=== PATIENT | female | born 1950 | race Caucasian/White ===

== ENCOUNTER 2017-06-07 12:41 | Emergency (ER) | payer MEDICARE, OTHER ==
--- NOTE | 2017-06-07 13:52 | ER Document Report ---
ED Medical Screen (RME) - General Chief Complaint: General Weakness Stated Complaint: FALL RIB PAIN Time Seen by Provider: 06/07/17 13:45 Mode of Arrival: Wheelchair Information source: Patient, Relative Notes: Patient is a 67 year old female with a history of COPD and chronic renal disease presents to the emergency department accompanied by daughter complaining of multiple symptoms including right sided rib pain, bilateral leg swelling, shortness of breath, lightheadedness, a recent fall, and altered mental status. Daughter states she [facility] the patient [facility] on [facility] and the patient reported she fell. Daughter states the patient has been feeling light headed and dizzy further stating the patient has not been mentally herself since then she picked her up. Patient has a history of electrolyte abnormalities and low sodium. At bedside patient only complains of a headache and rib pain. Patient denies a history of LA or strokes. GENERAL: Alert, interacts well. No acute distress. HEAD: Normocephalic, Atraumatic. NECK: Full range of motion. Supple. Trachea midline. LUNGS: Clear to auscultation bilaterally, no wheezes, rales, or rhonchi. No respiratory distress. HEART: Regular rate and rhythm. No murmurs, gallops, or rubs. ABDOMEN: Soft, non-tender. Non-distended. Bowel sounds present in all 4 quadrants. EXTREMITIES: 1+ pitting edema in BLE. PSYCH: Normal affect, normal mood. I have greeted and performed a rapid initial assessment of this patient. A comprehensive ED assessment and evaluation of the patient, analysis of test results and completion of the medical decision making process will be conducted by additional ED providers. TRAVEL OUTSIDE OF THE [place] IN LAST 30 DAYS: No - Related Data Allergies/Adverse Reactions: No Known Allergies Allergy (Unverified 06/07/17 12:43) Physical Exam - Vital signs Vitals: Temp Pulse Resp BP Pulse Ox 98.2 F 79 18 145/62 H 97 06/07/17 12:59 06/07/17 12:59 06/07/17 12:59 06/07/17 12:59 06/07/17 12:59 Course - Vital Signs Vital signs: Temp Pulse Resp BP Pulse Ox 98.2 F 79 18 145/62 H 97 06/07/17 12:59 06/07/17 12:59 06/07/17 12:59 06/07/17 12:59 06/07/17 12:59 Scribe Documentation - Scribe Written by Valentín:: Valentín Nelson, 06/07/2017 13:52 acting as scribe for :: Miki
[2017-06-07 14:32] LABS: HEMATOCRIT 27.2 % (36.0-47.0); HEMOGLOBIN 9.5 g/dL (12.0-15.5); MEAN CORPUSCULAR HEMOGLOBIN 28.8 pg (27.0-33.4); MEAN CORPUSCULAR HGB CONC 34.8 g/dL (32.0-36.0); MEAN CORPUSCULAR VOLUME 83 fl (80-97); PLATELET COUNT 214 10^3/uL (150-450); RED BLOOD COUNT 3.29 10^6/uL (3.72-5.28); RED CELL DISTRIBUTION WIDTH 15.1 % (11.5-14.0); WHITE BLOOD COUNT 3.4 10^3/uL (4.0-10.5)
--- NOTE | 2017-06-07 14:42 | RADIOLOGY REPORT (SQ) ---
EXAM DESCRIPTION: CT HEAD WITHOUT COMPLETED DATE/TIME: 06/07/2017 2:30 pm REASON FOR STUDY: AMS COMPARISON: None. TECHNIQUE: Axial images acquired through the brain without intravenous contrast. Images reviewed wi th bone, brain and subdural windows. Images stored on PACS. All CT scanners at this facility use dose modulation, iterative reconstruction, and/or weight based d osing when appropriate to reduce radiation dose to as low as reasonably achievable (ALARA). [facility]: Dose Right [facility]: CareDose [facility]: Dose Right [facility]: Teradose 4D [facility]: Smart [employer] RADIATION DOSE: CT Rad equipment meets quality standard of care and radiation dose reduction techniq ues were employed. CTDIvol: 59.2 mGy. DLP: 1034 mGy-cm. mGy. LIMITATIONS: None. FINDINGS: VENTRICLES: Normal size and contour. CEREBRUM: No masses. No hemorrhage. No midline shift. No evidence for acute infarction. Normal gra y/white matter differentiation. No areas of low density in the white matter. CEREBELLUM: No masses. No hemorrhage. No alteration of density. No evidence for acute infarction. EXTRAAXIAL SPACES: No fluid collections. No masses. ORBITS AND GLOBE: No intra- or extraconal masses. Normal contour of globe without masses. CALVARIUM: No fracture. PARANASAL SINUSES: No fluid or mucosal thickening. SOFT TISSUES: No mass or hematoma. OTHER: No other significant finding. IMPRESSION: NORMAL BRAIN CT WITHOUT CONTRAST. EVIDENCE OF ACUTE STROKE: NO. COMMENT: Quality ID # [id number]: Final reports with documentation of one or more dose reduction techniques (e.g., Automated exposure control, adjustment of the mA and/or kV according to patient size, use of iterative reconstruction technique) TECHNICAL DOCUMENTATION: JOB ID: [id number] [employer]- All Rights Reserved Reading location - IP/workstation name: [email or web address]
[2017-06-07 14:54] LABS: ALANINE AMINOTRANSFERASE 37 U/L (9-52); ALBUMIN 3.6 g/dL (3.5-5.0); ALKALINE PHOSPHATASE 69 U/L (38-126); ANION GAP 10 (5-19); ASPARTATE AMINO TRANSFERASE 29 U/L (14-36); BILIRUBIN,DIRECT 0.1 mg/dL (0.0-0.4); BILIRUBIN,TOTAL 0.2 mg/dL (0.2-1.3); BLOOD UREA NITROGEN 14 mg/dL (7-20); CALCIUM 9.2 mg/dL (8.4-10.2); CARBON DIOXIDE 28 mmol/L (22-30); CHLORIDE 100 mmol/L (98-107); GLUCOSE 91 mg/dL (75-110); POTASSIUM 3.8 mmol/L (3.6-5.0); SODIUM 137.6 mmol/L (137-145); TOTAL PROTEIN 5.8 g/dL (6.3-8.2)
--- NOTE | 2017-06-07 14:54 | RADIOLOGY REPORT (SQ) ---
EXAM DESCRIPTION: CT CHEST WITHOUT COMPLETED DATE/TIME: 06/07/2017 2:30 pm REASON FOR STUDY: fall, L sided rib pain, anterior COMPARISON: None. TECHNIQUE: CT scan performed of the chest without intravenous contrast. Images reviewed with lung, soft tissue and bone windows. Reconstructed coronal and sagittal MPR images reviewed. All images st ored on PACS. All CT scanners at this facility use dose modulation, iterative reconstruction, and/or weight based d osing when appropriate to reduce radiation dose to as low as reasonably achievable (ALARA). [facility]: Dose Right [facility]: CareDose [facility]: Dose Right [facility]: Teradose 4D [facility]: Smart [employer] RADIATION DOSE: CT Rad equipment meets quality standard of care and radiation dose reduction techniq ues were employed. CTDIvol: 14.4 mGy. DLP: 540 mGy-cm. mGy. LIMITATIONS: No technical limitations. FINDINGS: LUNGS AND PLEURA: No pleural effusion. No pneumothorax. Limited ground-glass infiltrate in the right lower lobe. Faintly defined ground-glass nodularity is suggested in the apical segments as well. HILAR AND MEDIASTINAL STRUCTURES: No identified masses or abnormal nodes. No obvious aneurysm. HEART AND VASCULAR STRUCTURES: No aneurysm. No pericardial effusion. UPPER ABDOMEN: No significant findings. Limited exam. THYROID AND OTHER SOFT TISSUES: No masses. No adenopathy. BONES: No significant abnormality. HARDWARE: None in the chest. OTHER: No other significant findings. IMPRESSION: 1. Ground-glass opacification in the superior segment of the right lower lobe suggestiv e of inflammatory change. Follow-up as clinically indicated. 2. No acute osseous findings. TECHNICAL DOCUMENTATION: JOB ID: [id number] Quality ID # [id number]: Final reports with documentation of one or more dose reduction techniques (e.g., Au tomated exposure control, adjustment of the mA and/or kV according to patient size, use of iterative reconstruction technique) 2010 [employer]- All Rights Reserved Reading location - IP/workstation name: [email or web address]
[2017-06-07 15:03] LABS: NT PRO BNP 381 pg/mL (5-900)
[2017-06-07 15:10] LABS: TROPONIN I < 0.012 ng/mL
[2017-06-07 15:16] LABS: ABSOLUTE MONOCYTES # (MANUAL) 0.6 10^3/uL (0.1-1.4); ABSOLUTE NEUTROPHILS# (MANUAL) 1.7 10^3/uL (1.7-8.2); ANISOCYTOSIS SLIGHT; BAND NEUTROPHILS % (MANUAL) 1 % (3-5); BASOPHILS % (MANUAL) 0 % (0-2); EOSINOPHILS % (MANUAL) 2 % (0-6); LYMPHOCYTES % (MANUAL) 28 % (13-45); METAMYELOCYTES % (MANUAL) 1 % (0); MONOCYTES % (MANUAL) 19 % (3-13); POLYCHROMASIA SLIGHT; SEGMENTED NEUTROPHILS % (MAN) 49 % (42-78); TOTAL CELLS COUNTED 100
[2017-06-07 15:17] LABS: PLATELET COMMENT ADEQUATE; TOXIC GRANULATION SLIGHT
--- NOTE | 2017-06-07 16:32 | ER Document Report ---
ED Cardiac - General Chief Complaint: General Weakness Stated Complaint: FALL RIB PAIN Time Seen by Provider: 06/07/17 13:45 Mode of Arrival: Wheelchair Information source: Patient Notes: 67 yo female c/o left chest pain under her breast, worse with deep breath and cough (non productive). Can't sleep at night, feels like stabbing under the breast. Started Saturday after she arrive here by POV from [place], after falling at rest area on Saturday. Was going up the curb, felt dizzy and fell onto left side. Used walker to go up the ramp. Also c/o right foot/ankle edema after falling. Was supposed to have a wheelchair [facility] from low sodium dx at [facility] 2 weeks ago. NO fever. No abdominal pain. Diarrhea last night. Dysuria since saturday evening. Sister who is in the room was with her during this time and since then and states that her sister is confused. 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 Has been taking psych meds [facility] the [facility] which are new. TRAVEL OUTSIDE OF THE [place] IN LAST 30 DAYS: No - Related Data Allergies/Adverse Reactions: No Known Allergies Allergy (Unverified 06/07/17 12:43) Past Medical History - General Information source: Patient, Relative - Social History Smoking Status: Former Smoker Chew tobacco use (# tins/day): No Frequency of alcohol use: None Drug Abuse: None Lives with: Other - with sister now Family History: Reviewed & Not Pertinent Patient has suicidal ideation: No Patient has homicidal ideation: No - Medical History Notes: Anemia- procrit shot given in april.. Hgb was 10 when she left [facility]. - Past Medical History Cardiac Medical History: Reports: Hx Hypertension Pulmonary Medical History: Reports: Hx Asthma, Hx COPD, Other - CPAP machine Renal/ Medical History: Reports: Hx Renal Insufficiency. Denies: Hx Peritoneal Dialysis GI Medical History: Reports: Hx Diverticulitis - dx last year, Hx Gastroesophageal Reflux Disease Infectious Medical History: Reports: Hx C-Diff - 2 weeks ago-tx with antibiotics Past Surgical History: Reports: Hx Cholecystectomy, Hx Hysterectomy Review of Systems - Review of Systems Constitutional: See HPI EENT: No symptoms reported Cardiovascular: No symptoms reported Respiratory: See HPI Gastrointestinal: See HPI Genitourinary: See HPI Female Genitourinary: See HPI Musculoskeletal: No symptoms reported Skin: See HPI Hematologic/Lymphatic: No symptoms reported Neurological/Psychological: See HPI Physical Exam - Vital signs Vitals: Temp Pulse Resp BP Pulse Ox 98.2 F 79 18 145/62 H 97 06/07/17 12:59 06/07/17 12:59 06/07/17 12:59 06/07/17 12:59 06/07/17 12:59 Interpretation: Normal - General General appearance: Appears well, Alert In distress: None - HEENT Head: Normocephalic, Atraumatic Eyes: Normal Conjunctiva: Normal Extraocular movements intact: Yes Pupils: PERRL Tympanic membrane: Normal Mucous membranes: Normal Pharynx: Normal Neck: Supple. No: Lymphadenopathy, Thyromegally - Respiratory Respiratory status: No respiratory distress Chest status: Nontender Breath sounds: Normal Chest palpation: Normal - Cardiovascular Rhythm: Regular Heart sounds: Normal auscultation Murmur: No - Abdominal Inspection: Normal Distension: No distension Bowel sounds: Normal Tenderness: Tender - right and left mid to lower abdomen, generalized-mild Organomegaly: No organomegaly - Back Back: Normal, Nontender. No: CVA tenderness - Extremities General upper extremity: Normal inspection, Nontender, Normal color, Normal ROM , Normal temperature General lower extremity: Normal inspection, Nontender, Normal color, Normal ROM , Normal temperature, Normal weight bearing. No: Cristina's sign Foot: Tender - pitting edema right foot, mild pretibal - Neurological Neuro grossly intact: Yes Cognition: Normal Orientation: AAOx4 Tram Coma Scale Eye Opening: Spontaneous Tram Coma Scale Verbal: Oriented Donya Coma Scale Motor: Obeys Commands Donya Coma Scale Total: 15 Speech: Normal Motor strength normal: LUE, RUE, LLE, RLE Sensory: Normal - Psychological Associated symptoms: Normal affect, Normal mood - Skin Skin Temperature: Warm Skin Moisture: Dry Skin Color: Normal Skin irregularity: Rash - intretrigo-mild under pannus and left breast Course - Re-evaluation Re-evalutation: 06/07/17 19:[address] Pimentel about everything that has been done in this patient she has diverticulosis which is not inflamed she has a positive nitrite in the urine I will treat her for urinary tract infection with a urine culture pending. She was on [facility] meds [facility] at the [facility] which she had never taken before she will be following up with Dr. Spence. I also explained to them about the lucency in the right tibia and Dr. Spence can follow-up on that. She has been up to the bathroom several times. And vital signs have been stable throughout her time here in the emergency department. - Vital Signs Vital signs: Temp Pulse Resp BP Pulse Ox 98 F 79 13 134/53 H 93 06/07/17 19:21 06/07/17 12:59 06/07/17 21:01 06/07/17 21:01 06/07/17 21:01 - Laboratory Result Diagrams: 06/07/17 14:10 06/07/17 14:10 Laboratory results interpreted by me: 06/07/17 06/07/17 06/07/17 14:10 14:10 14:10 WBC 3.4 L RBC 3.29 L Hgb 9.5 L Hct 27.2 L RDW 15.1 H Band Neutrophils % 1 L Monocytes % (Manual) 19 H Metamyelocytes % 1 H Est GFR ( Amer) 53 L Est GFR (Non-Af Amer) 44 L Ammonia < 8.7 L Total Protein 5.8 L Urine Blood Urine Nitrite 06/07/17 18:30 WBC RBC Hgb Hct RDW Band Neutrophils % Monocytes % (Manual) Metamyelocytes % Est GFR ( Amer) Est GFR (Non-Af Amer) Ammonia Total Protein Urine Blood SMALL H Urine Nitrite POSITIVE H Discharge - Discharge Clinical Impression: Intertrigo, Left sided chest pain, lucenty in right tibia, Chest wall pain Diarrhea Qualifiers: Diarrhea type: unspecified type Qualified Code(s): R19.7 - Diarrhea, unspecified Abdominal pain Qualifiers: Abdominal location: generalized Qualified Code(s): R10.84 - Generalized abdominal pain Condition: Good Disposition: HOME, SELF-CARE Instructions: Chest Wall Pain ([facility]), Nitrofurantoin ([facility]), Nystatin ([facility]), Skin Fungus ([facility]), Urinary Tract Infection ([facility]) Additional Instructions: plenty of fluids antibiotics as prescribed antifungal cream to abdomen rash and under left breast rash Urine culture is pending Follow-up with Dr. Spence Copies of all imaging and labs given to you for follow-up There is a spot that has decreased bone density on her right lower leg bone that will need to be evaluated make sure you talk to Dr. Spence about this. Prescriptions: Nitrofurantoin/Nitrofuran Mac [Macrobid 100 mg Capsule] 100 mg PO BID #14 capsule Nystatin 30 gm TP TID #30 cream..g.
--- NOTE | 2017-06-07 17:25 | RADIOLOGY REPORT (SQ) ---
EXAM DESCRIPTION: FOOT RIGHT 2 VIEWS COMPLETED DATE/TIME: 06/07/2017 5:02 pm REASON FOR STUDY: fall injury COMPARISON: None. NUMBER OF VIEWS: Three views. TECHNIQUE: AP, lateral and oblique radiographic images acquired of the right foot. LIMITATIONS: None. FINDINGS: MINERALIZATION: Osteopenia. BONES: No acute fracture or dislocation. No worrisome bone lesions. JOINTS: No effusions. SOFT TISSUES: Dorsal soft tissue swelling. OTHER: No other significant finding. IMPRESSION: Soft tissue swelling with no fracture. TECHNICAL DOCUMENTATION: JOB ID: [id number] [employer]- All Rights Reserved Reading location - IP/workstation name: [email or web address]
--- NOTE | 2017-06-07 17:28 | RADIOLOGY REPORT (SQ) ---
EXAM DESCRIPTION: ANKLE RIGHT COMPLETE COMPLETED DATE/TIME: 06/07/2017 5:02 pm REASON FOR STUDY: fall injury COMPARISON: None. NUMBER OF VIEWS: Three views. TECHNIQUE: AP, lateral, and oblique radiographic images acquired of the right ankle. LIMITATIONS: None. FINDINGS: MINERALIZATION: Normal. BONES: No fracture dislocation. There is an irregular area of lucency in the distal tibia about 5 cm above the tibiotalar joint PE JOINTS: No effusions. SOFT TISSUES: No soft tissue swelling. No foreign body. OTHER: No other significant finding. IMPRESSION: No acute abnormality. There is lucency in the distal tibia. Is there clinical history of multiple myeloma? TECHNICAL DOCUMENTATION: JOB ID: [id number] [employer]- All Rights Reserved Reading location - IP/workstation name: [email or web address]
[2017-06-07] MEDS ORDERED: KETOROLAC TROMETHAMINE INJ/PF 30 MG/1 ML SDV IV ONE (18:59)
--- NOTE | 2017-06-07 19:08 | RADIOLOGY REPORT (SQ) ---
EXAM DESCRIPTION: CT ABD/PELVIS WITH IV ONLY COMPLETED DATE/TIME: 06/07/2017 6:53 pm REASON FOR STUDY: abdominal pain, diarrhea, hx diverticulitis COMPARISON: None. TECHNIQUE: CT scan of the abdomen and pelvis performed using helical scanning technique with dynamic intravenous contrast injection. No oral contrast. Images reviewed with lung, soft tissue, and bone windows. Reconstructed coronal and sagittal MPR images reviewed. Delayed images for evaluation of the urinary system also acquired. All images stored on PACS. All CT scanners at this facility use dose modulation, iterative reconstruction, and/or weight based d osing when appropriate to reduce radiation dose to as low as reasonably achievable (ALARA). [facility]: Dose Right [facility]: CareDose [facility]: Dose Right [facility]: Teradose 4D [facility]: Coherent [employer] CONTRAST TYPE AND DOSE: contrast/concentration: Isovue 370.00 mg/ml; Total Contrast Delivered: 98.0 ml; Total Saline Delivered: 72.0 ml RENAL FUNCTION: BUN 14 creatinine 1.2 RADIATION DOSE: Total exam DLP: 1955 mGy cm LIMITATIONS: None. FINDINGS: LOWER CHEST: See separate report of the CT of the chest. LIVER: Normal size. No masses. No dilated ducts. SPLEEN: Normal size. No focal lesions. PANCREAS: No masses. No significant calcifications. No adjacent inflammation or peripancreatic fluid collections. Pancreatic duct not dilated. GALLBLADDER: There is surgical clips in the gallbladder fossa. ADRENAL GLANDS: No significant masses or asymmetry. RIGHT KIDNEY AND URETER: No solid masses. No significant calcifications. No hydronephrosis or hyd roureter. LEFT KIDNEY AND URETER: No solid masses. No significant calcifications. No hydronephrosis or hydr oureter. AORTA AND VESSELS: No aneurysm. No dissection. There is atherosclerosis and there is atherosclerosi s at the origins of the celiac and SMA. RETROPERITONEUM: No retroperitoneal adenopathy, hemorrhage or masses. BOWEL AND PERITONEAL CAVITY: No masses or inflammation. There are large numbers of sigmoid diverticu la with no associated inflammatory changes. APPENDIX: Not identified. No pericecal inflammatory changes are present. PELVIS: Urinary bladder is normal. Uterus is absent. There appear to be 2 contiguous adnexal cysts on the left. The larger measures 26 mm. ABDOMINAL WALL: No masses. No hernias. BONES: No significant or acute findings. OTHER: No other significant finding. IMPRESSION: 1. There is no urinary pathology. 2. There is extensive diverticulosis coli with no acute inflammation. 3. There are 2 left adnexal cysts. 4. There is atherosclerosis as described. 5. No acute findings are seen in the abdomen or pelvis. TECHNICAL DOCUMENTATION: JOB ID: [id number] Quality ID # [id number]: Final reports with documentation of one or more dose reduction techniques (e.g., Au tomated exposure control, adjustment of the mA and/or kV according to patient size, use of iterative reconstruction technique) 2010 [employer]- All Rights Reserved Reading location - IP/workstation name: [email or web address]
[2017-06-07 19:11] LABS: APPEARANCE,URINE CLEAR; BILIRUBIN,URINE NEGATIVE (NEGATIVE); COLOR,URINE YELLOW; GLUCOSE, URINE NEGATIVE (NEGATIVE); KETONES,URINE NEGATIVE (NEGATIVE); LEUKOCYTE ESTERASE,URINE NEGATIVE (NEGATIVE); NITRITE,URINE POSITIVE (NEGATIVE); PROTEIN,URINE NEGATIVE (NEGATIVE); URINE SPECIFIC GRAVITY 1.005; UROBILINOGEN,URINE NEGATIVE mg/dL (<2.0)
[2017-06-07 19:25] LABS: URINE AMPHETAMINES SCREEN NEGATIVE; URINE BARBITURATES SCREEN NEGATIVE; URINE BENZODIAZEPINES SCREEN UNCONFIRMED POSITIVE; URINE COCAINE SCREEN NEGATIVE; URINE MARIJUANA (THC) SCREEN NEGATIVE; URINE METHADONE SCREEN NEGATIVE; URINE PHENCYCLIDINE SCREEN NEGATIVE
[2017-06-07] MEDS ORDERED: NITROFURANTOIN MONOHYD/M-CRYST 100 MG CAPSULE PO ONE (19:28)
--- NOTE | 2017-06-07 20:50 | EKG REPORT ---
SEVERITY:- ABNORMAL ECG - SINUS RHYTHM PROBABLE INFERIOR INFARCT, OLD : Confirmed by: Alejandro Montiel MD 07-Jun-2017 20:50:26
[2017-06-07 21:28] VITALS: BP 134/53
== END 2017-06-07 21:28 | disposition home or self-care (01) ==
LOC: ER 12:41
DX: L30.4 Erythema intertrigo (principal); R07.89 Other chest pain; R07.81 Pleurodynia; R07.1 Chest pain on breathing; N90.89 Other specified noninflammatory disorders of vulva and perineum; R19.7 Diarrhea, unspecified; R10.84 Generalized abdominal pain; R53.1 Weakness; R30.0 Dysuria; R05 Cough; R10.31 Right lower quadrant pain; R10.32 Left lower quadrant pain; R21 Rash and other nonspecific skin eruption; W17.89XA Other fall from one level to another, initial encounter; Z87.891 Personal history of nicotine dependence; I10 Essential (primary) hypertension; J44.9 Chronic obstructive pulmonary disease, unspecified; Z90.49 Acquired absence of other specified parts of digestive tract; Z90.710 Acquired absence of both cervix and uterus
CPT/HCPCS: 93005; 99284; 51701; 96374; 36415; 87086; 82140; 83735; 84443; 85025; 82272; 87088; 80053; 81001; 84484; 87186; 80307; 83880; 73610; 73620; 70450; 71250; 74177; 93010; J1885; A9270; J8499

== ENCOUNTER 2017-07-18 20:04 | Emergency (ER) | payer OTHER, MEDICARE ==
--- NOTE | 2017-07-18 20:39 | ER Document Report ---
ED Medical Screen (RME) - General Chief Complaint: Psych Problem Stated Complaint: PSYCH PROBLEM Time Seen by Provider: 07/18/17 20:30 Notes: Patient is a 67-year-old female who comes emergency department for chief complaint of violent behavior and screaming at home, patient has a history of bipolar disorder, police was called by sister who lives with patient who per EMS reported that patient was screaming and they were afraid she would become violent. Patient states she is on bipolar medication but she is unsure which these are. Patient denies homicidal or suicidal ideations, denies any complaints, she states she is hoping she can be picked up and go home. She is new to the area, moved here recently from [place]. TRAVEL OUTSIDE OF THE [place] IN LAST 30 DAYS: No - Related Data Allergies/Adverse Reactions: No Known Allergies Allergy (Unverified 06/07/17 12:43) Past Medical History - Past Medical History Cardiac Medical History: Reports: Hx Hypertension Pulmonary Medical History: Reports: Hx Asthma, Hx COPD Renal/ Medical History: Reports: Hx Renal Insufficiency. Denies: Hx Peritoneal Dialysis GI Medical History: Reports: Hx Diverticulitis - dx last year, Hx Gastroesophageal Reflux Disease Infectious Medical History: Reports: Hx C-Diff - 2 weeks ago-tx with antibiotics Past Surgical History: Reports: Hx Cholecystectomy, Hx Hysterectomy Physical Exam - Vital signs Vitals: Temp Pulse Resp BP Pulse Ox 98.5 F 68 18 102/83 97 07/18/17 20:13 07/18/17 20:13 07/18/17 20:13 07/18/17 20:13 07/18/17 20:13 - Psychological Associated symptoms: Other - Patient smiling and laughing occasionally, cooperative, makes good eye contact Course - Vital Signs Vital signs: Temp Pulse Resp BP Pulse Ox 98.5 F 68 18 102/83 97 07/18/17 20:13 07/18/17 20:13 07/18/17 20:13 07/18/17 20:13 07/18/17 20:13
[2017-07-18 21:06] LABS: ABSOLUTE EOSINOPHILS # (AUTO) 0.1 10^3/uL (0.0-0.6); ABSOLUTE LYMPHOCYTES (AUTO) 1.2 10^3/uL (0.5-4.7); ABSOLUTE MONOCYTES (AUTO) 0.7 10^3/uL (0.1-1.4); BASOPHILS % (AUTO) 0.5 % (0-2); EOSINOPHILS % (AUTO) 1.1 % (0-6); HEMATOCRIT 30.5 % (36.0-47.0); HEMOGLOBIN 10.3 g/dL (12.0-15.5); LYMPHOCYTES % (AUTO) 19.5 % (13-45); MEAN CORPUSCULAR HEMOGLOBIN 28.8 pg (27.0-33.4); MEAN CORPUSCULAR HGB CONC 33.8 g/dL (32.0-36.0); MEAN CORPUSCULAR VOLUME 85 fl (80-97); MONOCYTES % (AUTO) 11.3 % (3-13); PLATELET COUNT 271 10^3/uL (150-450); RED BLOOD COUNT 3.58 10^6/uL (3.72-5.28); RED CELL DISTRIBUTION WIDTH 15.7 % (11.5-14.0); SEGMENTED NEUTROPHILS % (AUTO) 67.6 % (42-78); TOTAL CELLS COUNTED % (AUTO) 100 %; WHITE BLOOD COUNT 5.9 10^3/uL (4.0-10.5)
[2017-07-18 21:20] LABS: APPEARANCE,URINE CLEAR; BILIRUBIN,URINE NEGATIVE (NEGATIVE); COLOR,URINE YELLOW; GLUCOSE, URINE NEGATIVE (NEGATIVE); KETONES,URINE NEGATIVE (NEGATIVE); LEUKOCYTE ESTERASE,URINE TRACE (NEGATIVE); NITRITE,URINE NEGATIVE (NEGATIVE); PROTEIN,URINE NEGATIVE (NEGATIVE); URINE SPECIFIC GRAVITY 1.013; UROBILINOGEN,URINE NEGATIVE mg/dL (<2.0)
[2017-07-18 21:23] LABS: ALANINE AMINOTRANSFERASE 33 U/L (9-52); ALKALINE PHOSPHATASE 56 U/L (38-126); ANION GAP 11 (5-19); ASPARTATE AMINO TRANSFERASE 24 U/L (14-36); BILIRUBIN,DIRECT 0.3 mg/dL (0.0-0.4); BILIRUBIN,TOTAL 0.4 mg/dL (0.2-1.3); BLOOD UREA NITROGEN 22 mg/dL (7-20); CARBON DIOXIDE 30 mmol/L (22-30); CHLORIDE 102 mmol/L (98-107); GLUCOSE 95 mg/dL (75-110); POTASSIUM 4.1 mmol/L (3.6-5.0); SODIUM 142.5 mmol/L (137-145); TOTAL PROTEIN 6.6 g/dL (6.3-8.2)
[2017-07-18 21:25] LABS: ACETAMINOPHEN < 10 ug/mL (10-30); ALCOHOL < 10 mg/dL (NONE DETECTED); SALICYLATE < 1.0 mg/dL (2.0-20.0)
[2017-07-18 21:39] LABS: URINE AMPHETAMINES SCREEN NEGATIVE; URINE BARBITURATES SCREEN NEGATIVE; URINE BENZODIAZEPINES SCREEN NEGATIVE; URINE COCAINE SCREEN NEGATIVE; URINE MARIJUANA (THC) SCREEN NEGATIVE; URINE METHADONE SCREEN NEGATIVE; URINE PHENCYCLIDINE SCREEN NEGATIVE
[2017-07-18] MEDS ORDERED: TRAZODONE HCL 50 MG TABLET PO ONE (21:40)
[2017-07-18] MEDS ORDERED: QUETIAPINE FUMARATE 25 MG TABLET PO ONE (21:40)
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
--- NOTE | 2017-07-19 07:43 | EKG REPORT ---
SEVERITY:- NORMAL ECG - SINUS RHYTHM : Confirmed by: Alejandro Montiel MD 19-Jul-2017 07:43:13
--- NOTE | 2017-07-19 11:32 | ER Document Report ---
Doctor's Note Notes: 07/19/17 11:32 She was seen and evaluated. Resting comfortably at this time. Will continue to follow recommendations of her mental health team. Currently is not violent. Likely will be able to go home.
[2017-07-19] MEDS ORDERED: DIVALPROEX SODIUM 250 MG TABLET.DR PO SCH (14:00)
[2017-07-19] MEDS ORDERED: BUSPIRONE HCL 10 MG TABLET PO SCH (14:00)
[2017-07-19] MEDS ORDERED: DIVALPROEX SODIUM 250 MG TABLET.DR PO ONE (15:00)
[2017-07-19] MEDS ORDERED: BUSPIRONE HCL 10 MG TABLET PO ONE (15:00)
[2017-07-20] MEDS: BUSPIRONE HCL 10 MG TABLET PO SCH ×2 (06:50→18:42)
[2017-07-20] MEDS: DIVALPROEX SODIUM 250 MG TABLET.DR PO SCH ×2 (06:50→18:42)
--- NOTE | 2017-07-20 09:24 | ER Document Report ---
Doctor's Note Notes: 07/20/17 09:24 67-year-old female who was sent here for evaluation of a mood disorder and more aggressive behavior. Patient has a history of bipolar disorder. Behavior health is evaluating the patient. Labs as recorded. Vital signs are stable. I have added a urine culture. Patient has had no fevers, vomiting, complains of no abdominal pain or dysuria.
[2017-07-20] MEDS ORDERED: DIPHENHYDRAMINE HCL 25 MG CAPSULE PO ONE (21:53)
[2017-07-20] MEDS ORDERED: OLANZAPINE 5 MG TAB.RAPDIS PO ONE (23:12)
[2017-07-21] MEDS: BUSPIRONE HCL 10 MG TABLET PO SCH (04:26)
[2017-07-21] MEDS: DIVALPROEX SODIUM 250 MG TABLET.DR PO SCH (04:27)
--- NOTE | 2017-07-21 09:28 | ER Document Report ---
Doctor's Note Notes: 07/21/17 09:28 67-year-old female who was sent here for evaluation of a mood disorder and more aggressive behavior. Patient has a history of bipolar disorder. Behavior health is evaluating the patient. Vital signs are stable. They have started new medications yesterday. Patient has no complaints at this time. 07/21/17 09:47 The psychology team has seen and evaluated the patient and they believe it is reasonable to discharge the patient home at this time. They would like me to start Depakote and BuSpar. Patient has follow-up with a neurologist so they have provided instructions for me to give 1 week of medications. The patient's family is coming to pick the patient up. Patient is very calm and cooperative at this time and would like to go home. I believe that this is reasonable. Urine culture is pending. Patient has no abdominal pain, fevers, vomiting, or signs or symptoms of urinary tract infection.
[2017-07-21 12:19] VITALS: BP 126/62
== END 2017-07-21 12:18 | disposition home or self-care (01) ==
LOC: ER 20:04
DX: F31.9 Bipolar disorder, unspecified (principal); I10 Essential (primary) hypertension; J44.9 Chronic obstructive pulmonary disease, unspecified; Z79.899 Other long term (current) drug therapy
CPT/HCPCS: 93005; 99284; 36415; 87086; 80307 ×4; 84443; 85025; 80053; 81001; 93010; J3490

== ENCOUNTER 2017-08-15 21:47 | Emergency (ER) | payer MEDICARE, MEDICAID ==
[2017-08-15 23:53] LABS: AMORPHOUS SEDIMENT,URINE TRACE /HPF; APPEARANCE,URINE SLIGHTLY-CLOUDY; BILIRUBIN,URINE NEGATIVE (NEGATIVE); COLOR,URINE YELLOW; GLUCOSE, URINE NEGATIVE (NEGATIVE); KETONES,URINE NEGATIVE (NEGATIVE); LEUKOCYTE ESTERASE,URINE LARGE (NEGATIVE); NITRITE,URINE NEGATIVE (NEGATIVE); PROTEIN,URINE 30 mg/dL (NEGATIVE); URINE SPECIFIC GRAVITY 1.015; UROBILINOGEN,URINE NEGATIVE mg/dL (<2.0)
[2017-08-15 23:57] LABS: ALANINE AMINOTRANSFERASE 24 U/L (9-52); ALBUMIN 3.8 g/dL (3.5-5.0); ALKALINE PHOSPHATASE 65 U/L (38-126); ANION GAP 10 (5-19); ASPARTATE AMINO TRANSFERASE 23 U/L (14-36); BILIRUBIN,DIRECT 0.3 mg/dL (0.0-0.4); BILIRUBIN,TOTAL 0.4 mg/dL (0.2-1.3); BLOOD UREA NITROGEN 26 mg/dL (7-20); CALCIUM 9.7 mg/dL (8.4-10.2); CARBON DIOXIDE 27 mmol/L (22-30); CHLORIDE 104 mmol/L (98-107); GLUCOSE 92 mg/dL (75-110); POTASSIUM 3.6 mmol/L (3.6-5.0); SODIUM 140.5 mmol/L (137-145); TOTAL PROTEIN 6.3 g/dL (6.3-8.2)
--- NOTE | 2017-08-16 00:18 | ER Document Report ---
ED General - General Chief Complaint: Nausea Stated Complaint: NAUSEA Time Seen by Provider: 08/15/17 22:31 Notes: Patient is a 67-year-old female who presents with complaints of nausea that occurred after eating pork ribs today. History is somewhat inconsistent. 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 Because of this sometimes her memory is not the best. Patient apparently has lost quite a bit of weight since moving to the area. The family member says that she will eat a little bit and decided she does not want to eat anymore. Patient herself says that she is just felt a lot more weak over last couple days is also noticeable bit dysuria. No fevers. Nausea today. She does have primary care doctor who she has been following with regards to the weight loss. No chest pain. No shortness of breath. No abdominal pain. No other complaints at this time. TRAVEL OUTSIDE OF THE [place] IN LAST 30 DAYS: No - Related Data Allergies/Adverse Reactions: No Known Allergies Allergy (Unverified 06/07/17 12:43) Past Medical History - Social History Smoking Status: Never Smoker Frequency of alcohol use: None Drug Abuse: None Family History: Reviewed & Not Pertinent Patient has suicidal ideation: No Patient has homicidal ideation: No - Past Medical History Cardiac Medical History: Reports: Hx Hypertension Pulmonary Medical History: Reports: Hx Asthma, Hx COPD Renal/ Medical History: Reports: Hx Renal Insufficiency. Denies: Hx Peritoneal Dialysis GI Medical History: Reports: Hx Diverticulitis - dx last year, Hx Gastroesophageal Reflux Disease Infectious Medical History: Reports: Hx C-Diff - 2 weeks ago-tx with antibiotics Past Surgical History: Reports: Hx Cholecystectomy, Hx Hysterectomy Review of Systems - Review of Systems Notes: My Normal Review Basic REVIEW OF SYSTEMS: CONSTITUTIONAL : Fatigue EENT: Denies eye, ear, throat, or mouth pain or symptoms. Denies nasal or sinus congestion. CARDIOVASCULAR: Denies chest pain. RESPIRATORY: Denies cough, cold, or chest congestion. Denies shortness of breath, difficulty breathing, or wheezing. GASTROINTESTINAL: Denies abdominal pain. nausea GENITOURINARY: dysuria. FEMALE GENITOURINARY: Denies vaginal bleeding, abnormal or irregular periods. MUSCULOSKELETAL: Denies neck or back pain or joint pain or swelling. SKIN: Denies rash or skin lesions. NEUROLOGICAL: Denies altered mental status or loss of consciousness. Denies headache. Denies weakness or paralysis or loss of use of either side. Denies problems with gait or speech. Denies sensory or motor loss. ALL OTHER SYSTEMS REVIEWED AND NEGATIVE. Physical Exam - Vital signs Vitals: Temp Pulse Resp BP Pulse Ox 97.7 F 72 20 143/59 H 97 08/15/17 22:09 08/15/17 22:09 08/15/17 22:09 08/15/17 22:09 08/15/17 22:09 - Notes Notes: General Appearance: Well nourished, alert, cooperative, no acute distress, no obvious discomfort. Well-appearing. Vitals: reviewed, See vital signs table. Head: no swelling or tenderness to the head Eyes: PERRL, EOMI, Conjuctiva clear Mouth: No decreasd moisture Throat: No tonsillar inflammation, No airway obstruction, No lymphadenopathy Neck: Supple, no neck tenderness Lungs: No wheezing, No rales, No rhonci, No accessory muscle use, good air exchange bilaterally. Heart: Normal rate, Regular rythm, No murmur, no rub Abdomen: Normal BS, soft, No rigidity, No abdominal tenderness, No guarding, no rebound Extremities: strength 5/5 in all extremities, good pulses in all extremities, no swelling or tenderness in the extremities, no edema. Skin: warm, dry, appropriate color, no rash Neuro: speech clear, oriented x 3, normal affect, responds appropriately to questions. Course - Re-evaluation Re-evalutation: 08/16/17 05:18 Patient has urinary tract infection which most likely is caused her nausea and fatigue over the last few days. I informed her that she needs to follow-up closely with her primary care doctor about her weight loss. I did obtain some post baseline blood work but her CBC hemolyzed. The nurse did try to redraw the CBC but the patient refused any further blood sticks. I went talked her and she still refuses any further blood sticks. Urinalysis did show any evidence of urinary tract infection. Patient just wants treatment and then said she will follow-up closely with primary care doctor. She clinically looks well and I feel this is appropriate some she does follow-up closely with the primary care doctor. I strongly encouraged her return to ER immediately if she has fevers, recurrent vomiting, or feels unwell. Patient agrees with plan and will be discharged home. Dictation of this chart was performed using voice recognition software; therefore, there may be some unintended grammatical errors. - Vital Signs Vital signs: Temp Pulse Resp BP Pulse Ox 98.2 F 84 18 136/85 H 98 08/16/17 01:30 08/16/17 01:30 08/16/17 01:30 08/16/17 01:30 08/16/17 01:30 - Laboratory Result Diagrams: 08/15/17 23:35 08/15/17 23:35 Laboratory results interpreted by me: 08/15/17 08/15/17 23:35 23:35 BUN 26 H Est GFR ( Amer) 52 L Est GFR (Non-Af Amer) 43 L Urine Protein 30 H Ur Leukocyte Esterase LARGE H Urine Ascorbic Acid 20 H Discharge - Discharge Clinical Impression: UTI (urinary tract infection) Qualifiers: Urinary tract infection type: site unspecified Hematuria presence: without hematuria Qualified Code(s): N39.0 - Urinary tract infection, site not specified Condition: Good Disposition: HOME, SELF-CARE Additional Instructions: Please take the antibiotic as prescribed. Please take the Zofran as needed for vomiting not to exceed one tablet every 4 hours. Please follow up with your doctor on Saturday. Please return to the ER immediately if you have intractable vomiting, fever,s or feel that you are worsening. Prescriptions: Cephalexin Monohydrate [Keflex 500 mg Capsule] 500 mg PO BID 5 Days #14 capsule Forms: Return to Work
[2017-08-16] MEDS ORDERED: ONDANSETRON ODT 4 MG TAB (6 TAB/ER DISP) PO PRN (01:26)
[2017-08-16] MEDS ORDERED: CEPHALEXIN 500 MG CAPSULE PO ONE (01:27)
[2017-08-16 01:54] VITALS: BP 136/85
--- NOTE | 2017-08-16 02:48 | RADIOLOGY REPORT (SQ) ---
EXAM DESCRIPTION: US ABDOMEN ANEURYSM SCREENING CLINICAL HISTORY: 67 years Female, abdominal pain COMPARISON: None. NUMBER OF VIEWS/TECHNIQUE: 3 LIMITATIONS: None. FINDINGS: Intestinal gas pattern is within normal limits. No suspicious calcification. Grossly intact skeletal structures. No acute cardiopulmonary findings. Right upper abdominal clips. IMPRESSION: No acute findings.
== END 2017-08-16 01:40 | disposition home or self-care (01) ==
LOC: ER 21:47
DX: N39.0 Urinary tract infection, site not specified (principal); R11.0 Nausea; R53.1 Weakness; R30.0 Dysuria; R53.83 Other fatigue; R63.4 Abnormal weight loss; I10 Essential (primary) hypertension; J44.9 Chronic obstructive pulmonary disease, unspecified
CPT/HCPCS: 99283; 36415; 80053; 81001; 74022; A9270 ×2

== ENCOUNTER 2017-09-24 18:27 | Emergency (ER) | payer MEDICARE, MEDICAID ==
--- NOTE | 2017-09-24 19:34 | ER Document Report ---
ED Medical Screen (RME) - General Chief Complaint: Altered Mental Status Stated Complaint: ALTERED MENTAL STATUS Time Seen by Provider: 09/24/17 19:27 Mode of Arrival: Ambulatory Information source: Patient Notes: 67-year-old female history of psychiatric issues presents with family with concerns of confusion and paranoia. It is noted that the patient has been stating irrational thoughts. They also note that the patient has had 60 pound weight loss over the past 6 months I have greeted and performed a rapid initial assessment of this patient. A comprehensive ED assessment and evaluation of the patient, analysis of test results and completion of the medical decision making process will be conducted by additional ED providers. PHYSICAL EXAMINATION: GENERAL: Well-appearing, well-nourished and in no acute distress. HEAD: Atraumatic, normocephalic. EYES: Pupils equal round extraocular movements intact, conjunctiva are normal. ENT: Nares patent NECK: Normal range of motion LUNGS: No respiratory distress Musculoskeletal: Normal range of motion NEUROLOGICAL: Normal speech, normal gait. PSYCH: Normal mood, normal affect. SKIN: Warm, Dry, normal turgor, no rashes or lesions noted. TRAVEL OUTSIDE OF THE [place] IN LAST 30 DAYS: No - Related Data Allergies/Adverse Reactions: No Known Allergies Allergy (Unverified 06/07/17 12:43) Past Medical History - Past Medical History Cardiac Medical History: Reports: Hx Hypertension Pulmonary Medical History: Reports: Hx Asthma, Hx COPD Renal/ Medical History: Reports: Hx Renal Insufficiency. Denies: Hx Peritoneal Dialysis GI Medical History: Reports: Hx Diverticulitis - dx last year, Hx Gastroesophageal Reflux Disease Infectious Medical History: Reports: Hx C-Diff - 2 weeks ago-tx with antibiotics Past Surgical History: Reports: Hx Cholecystectomy, Hx Hysterectomy Physical Exam - Vital signs Vitals: Temp Pulse Resp BP Pulse Ox 97.7 F 81 20 172/68 H 99 09/24/17 18:51 09/24/17 18:51 09/24/17 18:51 09/24/17 18:51 09/24/17 18:51 Course - Vital Signs Vital signs: Temp Pulse Resp BP Pulse Ox 97.7 F 81 20 172/68 H 99 09/24/17 18:51 09/24/17 18:51 09/24/17 18:51 09/24/17 18:51 09/24/17 18:51
[2017-09-24 20:17] LABS: APPEARANCE,URINE CLEAR; BILIRUBIN,URINE NEGATIVE (NEGATIVE); COLOR,URINE YELLOW; GLUCOSE, URINE NEGATIVE (NEGATIVE); KETONES,URINE NEGATIVE (NEGATIVE); LEUKOCYTE ESTERASE,URINE MODERATE (NEGATIVE); NITRITE,URINE NEGATIVE (NEGATIVE); PROTEIN,URINE NEGATIVE (NEGATIVE); URINE SPECIFIC GRAVITY 1.008; UROBILINOGEN,URINE NEGATIVE mg/dL (<2.0)
[2017-09-24 20:26] LABS: ABSOLUTE LYMPHOCYTES (AUTO) 1.2 10^3/uL (0.5-4.7); ABSOLUTE MONOCYTES (AUTO) 0.4 10^3/uL (0.1-1.4); ABSOLUTE NEUT (AUTO) 5.4 10^3/uL (1.7-8.2); BASOPHILS % (AUTO) 0.5 % (0-2); EOSINOPHILS % (AUTO) 0.5 % (0-6); HEMATOCRIT 35.8 % (36.0-47.0); HEMOGLOBIN 12.1 g/dL (12.0-15.5); LYMPHOCYTES % (AUTO) 17.1 % (13-45); MEAN CORPUSCULAR HEMOGLOBIN 28.1 pg (27.0-33.4); MEAN CORPUSCULAR HGB CONC 33.9 g/dL (32.0-36.0); MEAN CORPUSCULAR VOLUME 83 fl (80-97); MONOCYTES % (AUTO) 6.2 % (3-13); PLATELET COUNT 282 10^3/uL (150-450); RED BLOOD COUNT 4.32 10^6/uL (3.72-5.28); RED CELL DISTRIBUTION WIDTH 15.6 % (11.5-14.0); SEGMENTED NEUTROPHILS % (AUTO) 75.7 % (42-78); TOTAL CELLS COUNTED % (AUTO) 100 %; WHITE BLOOD COUNT 7.1 10^3/uL (4.0-10.5)
[2017-09-24 20:29] LABS: URINE AMPHETAMINES SCREEN NEGATIVE; URINE BARBITURATES SCREEN NEGATIVE; URINE BENZODIAZEPINES SCREEN NEGATIVE; URINE COCAINE SCREEN NEGATIVE; URINE MARIJUANA (THC) SCREEN NEGATIVE; URINE METHADONE SCREEN NEGATIVE; URINE PHENCYCLIDINE SCREEN NEGATIVE
[2017-09-24 20:40] LABS: ALANINE AMINOTRANSFERASE 25 U/L (9-52); ALBUMIN 4.6 g/dL (3.5-5.0); ALKALINE PHOSPHATASE 83 U/L (38-126); ANION GAP 10 (5-19); ASPARTATE AMINO TRANSFERASE 25 U/L (14-36); BILIRUBIN,DIRECT 0.3 mg/dL (0.0-0.4); BILIRUBIN,TOTAL 0.6 mg/dL (0.2-1.3); BLOOD UREA NITROGEN 28 mg/dL (7-20); CALCIUM 10.2 mg/dL (8.4-10.2); CARBON DIOXIDE 32 mmol/L (22-30); CHLORIDE 100 mmol/L (98-107); GLUCOSE 93 mg/dL (75-110); POTASSIUM 4.1 mmol/L (3.6-5.0); SODIUM 142.4 mmol/L (137-145); TOTAL PROTEIN 7.7 g/dL (6.3-8.2)
[2017-09-24 20:41] LABS: ACETAMINOPHEN < 10 ug/mL (10-30); ALCOHOL < 10 mg/dL (NONE DETECTED); SALICYLATE < 1.0 mg/dL (2.0-20.0)
[2017-09-24 21:14] LABS: ANISOCYTOSIS SLIGHT; PLATELET COMMENT ADEQUATE; TOXIC GRANULATION SLIGHT
--- NOTE | 2017-09-24 21:46 | RADIOLOGY REPORT (SQ) ---
EXAM DESCRIPTION: CT CHEST WITHOUT COMPLETED DATE/TIME: 09/24/2017 8:40 pm REASON FOR STUDY: 60 pound weight loss over 6 months COMPARISON: 06/07/2017 TECHNIQUE: CT scan performed of the chest without intravenous contrast. Images reviewed with lung, soft tissue and bone windows. Reconstructed coronal and sagittal MPR images reviewed. All images st ored on PACS. All CT scanners at this facility use dose modulation, iterative reconstruction, and/or weight based d osing when appropriate to reduce radiation dose to as low as reasonably achievable (ALARA). [facility]: Dose Right [facility]: CareDose [facility]: Dose Right [facility]: Teradose 4D [facility]: [employer] RADIATION DOSE: CT Rad equipment meets quality standard of care and radiation dose reduction techniq ues were employed. CTDIvol: 7.3 mGy. DLP: 471 mGy-cm. mGy. LIMITATIONS: No technical limitations. FINDINGS: LUNGS AND PLEURA: No masses, infiltrates, or pneumothorax. No pleural effusions or pleura l calcifications. HILAR AND MEDIASTINAL STRUCTURES: No identified masses or abnormal nodes. No obvious aneurysm. HEART AND VASCULAR STRUCTURES: No aneurysm. Small pericardial effusion. UPPER ABDOMEN: See separate report of the CT of the abdomen. THYROID AND OTHER SOFT TISSUES: No masses. No adenopathy. BONES: No significant or acute abnormality. HARDWARE: None in the chest. OTHER: No other significant findings. IMPRESSION: NO SIGNIFICANT FINDING ON NON-CONTRASTED CHEST CT. TECHNICAL DOCUMENTATION: JOB ID: [id number] Quality ID # [id number]: Final reports with documentation of one or more dose reduction techniques (e.g., Au tomated exposure control, adjustment of the mA and/or kV according to patient size, use of iterative reconstruction technique) 2010 [employer]- All Rights Reserved Reading location - IP/workstation name: [email or web address]
--- NOTE | 2017-09-24 21:51 | RADIOLOGY REPORT (SQ) ---
EXAM DESCRIPTION: CT ABD/PELVIS NO ORAL OR IV COMPLETED DATE/TIME: 09/24/2017 8:40 pm REASON FOR STUDY: 60 pound weight loss over 6 months COMPARISON: None. TECHNIQUE: CT scan of the abdomen and pelvis performed without intravenous or oral contrast. Images reviewed with lung, soft tissue, and bone windows. Reconstructed coronal and sagittal MPR images revi ewed. All images stored on PACS. All CT scanners at this facility use dose modulation, iterative reconstruction, and/or weight based d osing when appropriate to reduce radiation dose to as low as reasonably achievable (ALARA). [facility]: Dose Right [facility]: CareDose [facility]: Dose Right [facility]: Teradose 4D [facility]: [employer] RADIATION DOSE: mGy. LIMITATIONS: None. FINDINGS: LOWER CHEST: See separate report of the CT of the chest. NON-CONTRASTED LIVER, SPLEEN, ADRENALS: Evaluation limited by lack of IV contrast. No identified sign ificant masses. PANCREAS: No masses. No peripancreatic inflammatory changes. GALLBLADDER: Surgically absent. RIGHT KIDNEY AND URETER: No suspicious masses. Assessment limited by lack of IV contrast. No signif icant calcifications. No hydronephrosis or hydroureter. LEFT KIDNEY AND URETER: No suspicious masses. Assessment limited by lack of IV contrast. No signifi cant calcifications. No hydronephrosis or hydroureter. AORTA AND RETROPERITONEUM: No aneurysm. No retroperitoneal masses or adenopathy. BOWEL AND PERITONEAL CAVITY: Extensive sigmoid diverticulosis. No acute inflammatory changes. No inocente wel masses. APPENDIX: Not identified. PELVIS, BLADDER, AND ABDOMINAL WALL:4.2 cm left adnexal cyst. Uterus is absent. BONES: No significant findings. OTHER: No other significant finding. IMPRESSION: 1. Extensive diverticulosis coli. 2. 4.2 cm left adnexal cyst. Ultrasound recommended. COMMENT: Quality ID # [id number]: Final reports with documentation of one or more dose reduction techniques (e.g., Automated exposure control, adjustment of the mA and/or kV according to patient size, use of iterative reconstruction technique) TECHNICAL DOCUMENTATION: JOB ID: [id number] [employer]- All Rights Reserved Reading location - IP/workstation name: [email or web address]
--- NOTE | 2017-09-24 22:48 | ER Document Report ---
ED General - General Chief Complaint: Altered Mental Status Stated Complaint: ALTERED MENTAL STATUS Time Seen by Provider: 09/24/17 19:27 Mode of Arrival: Ambulatory Notes: Patient is a 67-year-old female with a past medical history of a possible anoxic brain injury with subsequent agitation requiring Seroquel and trazodone at baseline, who presents with increasing agitation and combativeness over the past 3-4 days. Her sister at the bedside with whom she lives provides the majority of the history. She states that overall the patient has been well controlled on Seroquel and trazodone for the past several months. However she states that in the past 2-3 days the patient has been increasingly irritable, picking fights with family members and off seems profoundly confused or even paranoid. Nothing seems to improve or worsen her symptoms. She has not yet followed up with her neurologist or primary care doctor regarding these concerns. The patient herself denies any acute complaints. States that she feels completely fine. She is unable to account for her behaviors. She denies any headache, neck pain, chest pain, shortness of breath, focal weakness or numbness. TRAVEL OUTSIDE OF THE [place] IN LAST 30 DAYS: No - Related Data Allergies/Adverse Reactions: No Known Allergies Allergy (Unverified 06/07/17 12:43) Past Medical History - General Information source: Patient - Social History Smoking Status: Former Smoker Chew tobacco use (# tins/day): No Frequency of alcohol use: None Drug Abuse: None Lives with: Family Family History: Reviewed & Not Pertinent Patient has suicidal ideation: No Patient has homicidal ideation: No - Past Medical History Cardiac Medical History: Reports: Hx Hypertension Pulmonary Medical History: Reports: Hx Asthma, Hx COPD Renal/ Medical History: Reports: Hx Renal Insufficiency. Denies: Hx Peritoneal Dialysis GI Medical History: Reports: Hx Diverticulitis - dx last year, Hx Gastroesophageal Reflux Disease Infectious Medical History: Reports: Hx C-Diff - 2 weeks ago-tx with antibiotics Past Surgical History: Reports: Hx Cholecystectomy, Hx Hysterectomy Review of Systems - Review of Systems Notes: Constitutional: Negative for fever. HENT: Negative for sore throat. Eyes: Negative for visual changes. Cardiovascular: Negative for chest pain. Respiratory: Negative for shortness of breath. Gastrointestinal: Negative for abdominal pain, vomiting or diarrhea. Genitourinary: Negative for dysuria. Musculoskeletal: Negative for back pain. Skin: Negative for rash. Neurological: Negative for headaches, weakness or numbness. 10 point ROS negative except as marked above and in HPI. Physical Exam - Vital signs Vitals: Temp Pulse Resp BP Pulse Ox 97.7 F 81 20 172/68 H 99 09/24/17 18:51 09/24/17 18:51 09/24/17 18:51 09/24/17 18:51 09/24/17 18:51 Interpretation: Hypertensive Notes: PHYSICAL EXAMINATION: GENERAL: Well-appearing, well-nourished and in no acute distress. HEAD: Atraumatic, normocephalic. EYES: Pupils equal round and reactive to light, extraocular movements intact, sclera anicteric, conjunctiva are normal. ENT: nares patent, oropharynx clear without exudates. Mildly dry mucous membranes. NECK: Normal range of motion, supple without lymphadenopathy LUNGS: Breath sounds clear to auscultation bilaterally and equal. No wheezes rales or rhonchi. HEART: Regular rate and rhythm without murmurs ABDOMEN: Soft, nontender, normoactive bowel sounds. No guarding, no rebound. No masses appreciated. EXTREMITIES: Normal range of motion, no pitting or edema. No cyanosis. NEUROLOGICAL: Face symmetric. Tongue protrudes midline. Extraocular motions intact. Pupils are 2 mm and equally reactive. Normal speech, normal gait. 5 out of 5 strength in both the distal and proximal upper and lower extremities bilaterally. Sensation is grossly intact throughout. Finger to nose testing normal. Pronator drift normal. PSYCH: Alert and oriented 4. Pleasant on contact. SKIN: Warm, Dry, normal turgor, no rashes or lesions noted. Course - Re-evaluation Re-evalutation: 09/24/17 22:48 Patient presents with concerns of increasing agitation and confusion at home although is alert and oriented x4, pleasant at this time which the family at the bedside states is often the case where she has periods of lucidity and acting normally and has periods where she is extremely agitated, combative and paranoid. The patient has no focal complaints on exam. No focal neurologic deficits. Labs show findings consistent with a probable urinary tract infection although her sister at the bedside who is a retired nurse states that the patient has been told that she has urinary tract infections almost continuously since April and that the cultures often grow negative. She is requesting a straight catheterization to verify that this is a true urinary tract infection. A CT scan of the abdomen pelvis as well as chest is obtained in triage due to concerns the patient is lost 60 pounds in the past 5 months. A left adnexal cyst is noted which is concerning a 67-year-old female as there should not be any cystic structures in this age group. Certainly an ovarian malignancy could be causing some of the patient's symptoms particular that she has been having the symptoms for several months but have been well controlled on Seroquel and trazodone into the past several days. Will obtain a transvaginal ultrasound to further clarify this left ovarian mass, obtain a straight catheterized specimen and then reassess the patient. 09/25/17 01:25 Adnexal mass seen on CT is not better clarify by ultrasound. The patient will follow up with [facility] regarding this issue and I have told her that there is high-level concern for possible ovarian malignancy. Her catheterized urine specimen is consistent with a urinary tract infection. A urine culture has been sent. The patient will be started on cephalexin. I will also increase the patient's Seroquel to help her sleep at night. At this time will discharge with return precautions and follow-up recommendations. Verbal discharge instructions given a the bedside and opportunity for questions given. Medication warnings reviewed. Patient is in agreement with this plan and has verbalized understanding of return precautions and the need for primary care follow-up in the next 24-72 hours. - Vital Signs Vital signs: Temp Pulse Resp BP Pulse Ox 98.2 F 81 13 142/61 H 98 09/25/17 01:43 09/24/17 18:51 09/25/17 02:01 09/25/17 01:43 09/25/17 02:01 - Laboratory Result Diagrams: 09/24/17 20:01 09/24/17 20:01 Laboratory results interpreted by me: 09/24/17 09/24/17 09/24/17 20:01 20:01 20:01 Hct 35.8 L RDW 15.6 H Carbon Dioxide 32 H BUN 28 H Creatinine 1.32 H Est GFR ( Amer) 48 L Est GFR (Non-Af Amer) 40 L Ur Leukocyte Esterase MODERATE H Urine Ascorbic Acid Salicylates < 1.0 L Acetaminophen < 10 L 09/24/17 23:49 Hct RDW Carbon Dioxide BUN Creatinine Est GFR ( Amer) Est GFR (Non-Af Amer) Ur Leukocyte Esterase LARGE H Urine Ascorbic Acid 40 H Salicylates Acetaminophen - Diagnostic Test Radiology reviewed: Reports reviewed Discharge - Discharge Clinical Impression: Adnexal mass, Confusion, Agitation Urinary tract infection Qualifiers: Urinary tract infection type: site unspecified Hematuria presence: without hematuria Qualified Code(s): N39.0 - Urinary tract infection, site not specified Condition: Good Disposition: HOME, SELF-CARE Additional Instructions: Your urine shows findings consistent with a urinary tract infection. Please take all the antibiotics as directed even if your symptoms have improved. Please follow-up with your primary care physician as needed. Return to emergency room if you develop fever >101F, persistent vomiting, become lethargic , have severe pain in your sides, or any other symptoms that are concerning to you. Please increase your Seroquel to 150 mg nightly. This will hopefully help you sleep better and improve your demeanor during the day. As we discussed the CT scan shows a possible mass in your left ovary. You need to follow-up with [facility]OR regarding this issue and a referral has been included in your paperwork. Prescriptions: Quetiapine Fumarate [Seroquel] 100 mg PO QHS #30 tablet Cephalexin Monohydrate [Keflex 500 mg Capsule] 500 mg PO Q6H 7 Days capsule Referrals: KARI POLLOCK MD [ACTIVE STAFF] - Follow up in 3-5 days
[2017-09-25 00:19] LABS: APPEARANCE,URINE SLIGHTLY-CLOUDY; BILIRUBIN,URINE NEGATIVE (NEGATIVE); COLOR,URINE YELLOW; GLUCOSE, URINE NEGATIVE (NEGATIVE); KETONES,URINE NEGATIVE (NEGATIVE); LEUKOCYTE ESTERASE,URINE LARGE (NEGATIVE); NITRITE,URINE NEGATIVE (NEGATIVE); PROTEIN,URINE NEGATIVE (NEGATIVE); URINE SPECIFIC GRAVITY 1.013; UROBILINOGEN,URINE NEGATIVE mg/dL (<2.0)
--- NOTE | 2017-09-25 00:39 | RADIOLOGY REPORT (SQ) ---
EXAM DESCRIPTION: US PELVIS COMPLETED DATE/TME: 09/24/2017 22:42 CLINICAL HISTORY: 67 years, Female, left adnexal mass COMPARISON: CT, same day. TECHNIQUE: Transvaginal and transabdominal LIMITATIONS: None. FINDINGS: Uterus is surgically removed. Bilateral ovaries are not directly visualized. Decompressed urinary bladder. No free fluid. IMPRESSION: Patient's concurrent CT evident left adnexal lesion is not discerned. Recommend contrast MRI of the pelvis and/or SETTLEMENT WORKER referral.
[2017-09-25] MEDS ORDERED: CEPHALEXIN 500 MG CAPSULE PO ONE (01:27)
[2017-09-25 02:10] VITALS: BP 142/61
--- NOTE | 2017-09-25 08:59 | EKG REPORT ---
SEVERITY:- NORMAL ECG - SINUS RHYTHM : Confirmed by: Alejandro Montiel MD 25-Sep-2017 08:58:12
== END 2017-09-25 02:10 | disposition home or self-care (01) ==
LOC: ER 18:27
DX: R41.0 Disorientation, unspecified (principal); R19.09 Other intra-abdominal and pelvic swelling, mass and lump; N39.0 Urinary tract infection, site not specified; I10 Essential (primary) hypertension; R45.1 Restlessness and agitation; J44.9 Chronic obstructive pulmonary disease, unspecified; Z90.710 Acquired absence of both cervix and uterus; Z90.49 Acquired absence of other specified parts of digestive tract
CPT/HCPCS: 93005; 99285; 51701; 36415; 87086; 80307 ×4; 85025; 87088; 80053; 81001; 87186; 76830; 93976; 71250; 74176; 93010; A9270

== ENCOUNTER 2017-10-17 21:18 | Emergency (ER) | payer MEDICARE, MEDICAID ==
--- NOTE | 2017-10-17 22:57 | RADIOLOGY REPORT (SQ) ---
EXAM DESCRIPTION: Right foot and right ankle three views each, October 17, 2017 at 10:32 PM CLINICAL HISTORY: pain and injury COMPARISON: Ankle x-rays June 07, 2017 FINDINGS: AP, lateral and oblique views of the right ankle and foot were submitted. There is no discrete acute fracture or dislocation. There is an enthesophyte in the plantar aspect of the calcaneus and insertion of the Achilles tendon. There is an approximately 1.3 cm lucent subcortical lesion at the distal right tibia without bony destruction. This is unchanged compared with the prior examination.. The ankle mortise is intact in these non stress views. There is no radiopaque foreign body material. IMPRESSION: No acute fracture or dislocation. Lucent lesion at the distal right tibia is unchanged compared with the prior exam.
[2017-10-17] MEDS ORDERED: ACETAMINOPHEN 325 MG TABLET PO ONE (23:45)
--- NOTE | 2017-10-17 23:47 | ER Document Report ---
ED General - General Chief Complaint: Foot Injury Stated Complaint: FOOT PAIN Time Seen by Provider: 10/17/17 23:37 Mode of Arrival: Ambulatory Information source: Patient Notes: 67-year-old female with hypertension, COPD presents with complaint of right foot pain. Patient states that just prior to arrival she accidentally dropped her dresser drawer onto her foot. She describes the pain as a constant aching pain that is worse with walking. She denies any previous injury to this foot. TRAVEL OUTSIDE OF THE [place] IN LAST 30 DAYS: No - HPI Onset: Just prior to arrival Quality of pain: Achy Associated symptoms: None Exacerbated by: Walking Relieved by: Remaining still Similar symptoms previously: No Recently seen / treated by doctor: No - Related Data Allergies/Adverse Reactions: No Known Allergies Allergy (Unverified 06/07/17 12:43) Past Medical History - General Information source: Patient - Social History Smoking Status: Former Smoker Frequency of alcohol use: None Drug Abuse: None Lives with: Family Family History: Reviewed & Not Pertinent Patient has suicidal ideation: No Patient has homicidal ideation: No - Past Medical History Cardiac Medical History: Reports: Hx Hypertension Pulmonary Medical History: Reports: Hx Asthma, Hx COPD Renal/ Medical History: Reports: Hx Renal Insufficiency. Denies: Hx Peritoneal Dialysis GI Medical History: Reports: Hx Diverticulitis - dx last year, Hx Gastroesophageal Reflux Disease Infectious Medical History: Reports: Hx C-Diff - 2 weeks ago-tx with antibiotics Past Surgical History: Reports: Hx Cholecystectomy, Hx Hysterectomy Review of Systems - Review of Systems Notes: REVIEW OF SYSTEMS: CONSTITUTIONAL : Denies fever, chills, or sweats. Denies recent illness. Denies weight loss, recent hospitalizations. EENT: Denies visual changes, eye pain. Denies nasal or sinus congestion or discharge. Denies sore throat, oral lesions, difficulty swallowing. CARDIOVASCULAR: Denies chest pain. Denies palpitations. Denies lower extremity edema. RESPIRATORY: Denies cough, cold, or chest congestion. Denies shortness of breath, wheezing. GASTROINTESTINAL: Denies abdominal pain or distention. Denies nausea, vomiting , or diarrhea. Denies blood in vomitus, stools, or per rectum. Denies black, tarry stools. Denies constipation. GENITOURINARY: Denies difficulty urinating, painful urination, frequency, blood in urine, or vaginal discharge. MUSCULOSKELETAL: Denies back or neck pain or stiffness. SKIN: Denies rash, lesions or sores. HEMATOLOGIC : Denies easy bruising or bleeding. LYMPHATIC: Denies swollen glands. NEUROLOGICAL: Denies confusion or altered mental status. Denies passing out or loss of consciousness. Denies dizziness or lightheadedness. Denies headache. Denies weakness or paralysis. Denies problems difficulty with ambulation, slurred speech. Denies sensory loss, numbness, or tingling. Denies seizures. PSYCHIATRIC: Denies anxiety or stress. Denies depression, suicidal ideation, or homicidal ideation. Denies visual or auditory hallucinations. Physical Exam - Vital signs Vitals: Temp Pulse Resp BP Pulse Ox 98.2 F 78 16 166/70 H 98 10/17/17 21:26 10/17/17 21:26 10/17/17 21:26 10/17/17 21:10/17/17 21:26 Interpretation: Hypertensive - Notes Notes: PHYSICAL EXAMINATION: GENERAL: Well-appearing, well-nourished and in no acute distress. HEAD: Atraumatic, normocephalic. EYES: Pupils equal round and reactive to light, extraocular movements intact, conjunctiva are normal. ENT: Nares patent, oropharynx clear without exudates. Moist mucous membranes. NECK: Normal range of motion, supple without lymphadenopathy LUNGS: Breath sounds clear to auscultation bilaterally and equal. No wheezes rales or rhonchi. HEART: Regular rate and rhythm without murmurs ABDOMEN: Soft, nontender, nondistended abdomen. No guarding, no rebound. No masses appreciated. Female : deferred Musculoskeletal: Normal range of motion, no pitting or edema. No cyanosis. Tender to palpation along the right forefoot without obvious deformity. DP pulse intact. Patient able to wiggle toes. NEUROLOGICAL: Cranial nerves grossly intact. Normal speech, normal gait. Normal sensory, motor exams PSYCH: Normal mood, normal affect. SKIN: Warm, Dry, normal turgor, no rashes or lesions noted. Course - Re-evaluation Re-evalutation: Ankle X-Ray 10/17/17 21:59 IMPRESSION: No acute fracture or dislocation. Lucent lesion at the distal right tibia is unchanged compared with the prior exam. Foot X-Ray 10/17/17 21:59 IMPRESSION: No acute fracture or dislocation. Lucent lesion at the distal right tibia is unchanged compared with the prior exam. 10/18/17 00:03 67-year-old female presents after dropping a dresser drawer onto her right foot. X-rays were obtained and showed no evidence of fracture. Patient was placed in a postop shoe and Alek wrap and provided Motrin. Patient provided the opportunity to ask questions, and express concerns. Discharge instructions discussed. Patient is agreeable with discharge home. Return indications explained and discussed with the patient who displays understanding. Patient encouraged to return to the emergency department immediately with any concerns. - Vital Signs Vital signs: Temp Pulse Resp BP Pulse Ox 98.2 F 78 16 166/70 H 98 10/17/17 21:26 10/17/17 21:26 10/17/17 21:26 10/17/17 21:26 10/17/17 21:26 - Diagnostic Test Radiology reviewed: Image reviewed, Reports reviewed Discharge - Discharge Clinical Impression: Foot contusion Qualifiers: Encounter type: initial encounter Laterality: right Qualified Code(s): S90.31XA - Contusion of right foot, initial encounter Condition: Good Disposition: HOME, SELF-CARE Instructions: Contusion ([facility]) Additional Instructions: Follow up with your physician tomorrow for further care or return to the ED IMMEDIATELY if symptoms worsen or new concerns occur. If you cannot afford to follow up with your primary care physician a list of low cost clinics have been provided at the end of your discharge papers as well. Prescriptions: Ibuprofen [Motrin 600 Mg Tablet] 600 mg PO TID #15 tablet Forms: Elevated Blood Pressure
[2017-10-18 00:42] VITALS: BP 149/74
== END 2017-10-18 00:39 | disposition home or self-care (01) ==
LOC: ER 21:18
DX: S90.31XA Contusion of right foot, initial encounter (principal); W20.8XXA Other cause of strike by thrown, projected or falling object, initial encounter; I10 Essential (primary) hypertension; J44.9 Chronic obstructive pulmonary disease, unspecified; Z90.49 Acquired absence of other specified parts of digestive tract; Z90.710 Acquired absence of both cervix and uterus
CPT/HCPCS: 99283; 73610; 73630; A9270

== ENCOUNTER → 2018-01-03 | Outpatient (CLI) | payer MEDICARE, MEDICAID ==
[2018-01-03 08:51] LABS: AMORPHOUS SEDIMENT,URINE 1+ /HPF; APPEARANCE,URINE SLIGHTLY-CLOUDY; BILIRUBIN,URINE NEGATIVE (NEGATIVE); COLOR,URINE YELLOW; GLUCOSE, URINE NEGATIVE (NEGATIVE); KETONES,URINE NEGATIVE (NEGATIVE); LEUKOCYTE ESTERASE,URINE MODERATE (NEGATIVE); NITRITE,URINE NEGATIVE (NEGATIVE); PROTEIN,URINE NEGATIVE (NEGATIVE); URINE SPECIFIC GRAVITY 1.011; UROBILINOGEN,URINE NEGATIVE mg/dL (<2.0)
[2018-01-03 08:53] LABS: ABSOLUTE EOSINOPHILS # (AUTO) 0.2 10^3/uL (0.0-0.6); ABSOLUTE LYMPHOCYTES (AUTO) 1.1 10^3/uL (0.5-4.7); ABSOLUTE MONOCYTES (AUTO) 0.4 10^3/uL (0.1-1.4); EOSINOPHILS % (AUTO) 4.3 % (0-6); HEMATOCRIT 30.2 % (36.0-47.0); HEMOGLOBIN 10.5 g/dL (12.0-15.5); LYMPHOCYTES % (AUTO) 30.6 % (13-45); MEAN CORPUSCULAR HEMOGLOBIN 28.7 pg (27.0-33.4); MEAN CORPUSCULAR HGB CONC 34.7 g/dL (32.0-36.0); MEAN CORPUSCULAR VOLUME 83 fl (80-97); PLATELET COUNT 168 10^3/uL (150-450); RED BLOOD COUNT 3.65 10^6/uL (3.72-5.28); SEGMENTED NEUTROPHILS % (AUTO) 54.1 % (42-78); TOTAL CELLS COUNTED % (AUTO) 100 %; WHITE BLOOD COUNT 3.7 10^3/uL (4.0-10.5)
[2018-01-03 09:16] LABS: ALANINE AMINOTRANSFERASE 20 U/L (9-52); ALBUMIN 3.4 g/dL (3.5-5.0); ALKALINE PHOSPHATASE 56 U/L (38-126); ANION GAP 6 (5-19); ASPARTATE AMINO TRANSFERASE 18 U/L (14-36); BILIRUBIN,DIRECT 0.1 mg/dL (0.0-0.4); BILIRUBIN,TOTAL 0.3 mg/dL (0.2-1.3); BLOOD UREA NITROGEN 29 mg/dL (7-20); CALCIUM 9.4 mg/dL (8.4-10.2); CARBON DIOXIDE 33 mmol/L (22-30); CHLORIDE 102 mmol/L (98-107); GLUCOSE 81 mg/dL (75-110); IRON(TIBC) 43.1 ug/dL (37-170); POTASSIUM 4.5 mmol/L (3.6-5.0); SODIUM 140.9 mmol/L (137-145)
[2018-01-06 16:39] LABS: A/G RATIO 1.1 (0.7-1.7); ALPHA-2-GLOBULIN 2 0.8 g/dL (0.4-1.0); BETA GLOBULINS 0.9 g/dL (0.7-1.3); GAMMA GLOBULIN 0.8 g/dL (0.4-1.8); GLOBULIN TOTAL 2.7 g/dL (2.2-3.9); MONOCLONAL SPIKE Not Observed g/dL (Not Observ); PROTEIN TOTAL SERUM 5.7 g/dL (6.0-8.5)
[2018-01-06 17:37] LABS: IMMUNOGLOBULIN A 185 mg/dL (87-352); IMMUNOGLOBULIN G 744 mg/dL (700-1600)
[2018-01-07 07:27] LABS: IMMUNOGLOBULIN M 45 mg/dL (26-217)
== END ==
LOC: OD 07:52
PROVIDERS: ATTEND Internal Medicine Nephrology
DX: N18.3 Chronic kidney disease, stage 3 (moderate) (principal); D64.9 Anemia, unspecified
CPT/HCPCS: 36415; 80053; 81001; 82533; 82728; 82784; 83540; 83550; 84165; 84443; 85025

== ENCOUNTER → 2018-02-20 | Outpatient (CLI) | payer MEDICARE ==
--- NOTE | 2018-02-20 15:48 | RADIOLOGY REPORT (SQ) ---
EXAM DESCRIPTION: BARIUM ENEMA W/AIR COMPLETED DATE/TIME: 02/20/2018 12:12 pm REASON FOR STUDY: PERSONAL HX OF COLONIC POLYPS (Z86.010) Z86.010 PERSONAL HISTORY OF COLONIC POLYP S COMPARISON: None. FLUOROSCOPY TIME: 3 minutes 50 seconds of fluoroscopy was used. 17 fluoroscopic spot images saved to PACS. TECHNIQUE: Following retrograde filling of the colon with barium and air, fluoroscopic spot and over head imaging of the colon was obtained and saved to PACS. LIMITATIONS: None. FINDINGS: LENS GENERATING MACHINE TENDER KUB: Normal abdominal film with adequate bowel prep. CECUM: Normal mucosa without intraluminal filling defects, intrinsic or extrinsic masses, or lesions. There is reflux of contrast into the terminal ileum. Appendix is not visualized. ASCENDING COLON: Normal mucosa without intraluminal filling defects, intrinsic or extrinsic masses, o r lesions. TRANSVERSE COLON: Normal mucosa without intraluminal filling defects, intrinsic or extrinsic masses, or lesions. Few scattered diverticula are identified. DESCENDING COLON: Normal mucosa without intraluminal filling defects, intrinsic or extrinsic masses, or lesions. Distal descending colonic diverticulosis. SIGMOID COLON: Extensive sigmoid diverticulosis without evidence of diverticulitis. No masses or str ictures are identified. RECTUM: Normal mucosa without intraluminal filling defects, intrinsic or extrinsic masses, or lesions . POST EVAC: Large amount of retained contrast material is seen throughout the colon on post evacuation imaging. OTHER: Redundant sigmoid and transverse colon. IMPRESSION: EXTENSIVE SIGMOID AND DISTAL DESCENDING COLONIC DIVERTICULOSIS WITHOUT EVIDENCE OF DIVER TICULITIS. FEW SCATTERED DIVERTICULA ARE SEEN IN THE TRANSVERSE COLON. NO MASSES OR LESIONS ARE ELIZABETH NTIFIED. COMMENT: Quality ID [id number]: Final reports for procedures using fluoroscopy that document radiation exp osure indices, or exposure time and number of fluorographic images (if radiation exposure indices are not available) TECHNICAL DOCUMENTATION: JOB ID: [id number] [employer]- All Rights Reserved Reading location - IP/workstation name: [email or web address] [id number]
== END ==
LOC: RAD 09:02
PROVIDERS: ATTEND Internal Medicine Gastroenterology
DX: Z86.010 Personal history of colon polyps (principal)
CPT/HCPCS: 74280

== ENCOUNTER 2018-03-12 10:10 | Emergency (ER) | payer MEDICARE, MEDICAID ==
[2018-03-12] MEDS ORDERED: NORMAL SALINE 1000 ML 1,000 ML IV ONE (10:45)
[2018-03-12] MEDS ORDERED: ONDANSETRON HCL INJ/PF 4 MG/2 ML SDV IV ONE (10:45)
--- NOTE | 2018-03-12 10:45 | ER Document Report ---
ED Medical Screen (RME) - General Chief Complaint: Nausea/Vomiting/Diarrhea Stated Complaint: THROWING UP/ABDOMINAL PAIN Time Seen by Provider: 03/12/18 10:41 TRAVEL OUTSIDE OF THE [place] IN LAST 30 DAYS: No - HPI Notes: 03/12/18 10:44 Patient is a 68-year-old female that presents to the emergency department for chief complaint of nausea vomiting and diarrhea. Patient reports her symptoms have been ongoing for the last 2 days and seem to be getting worse. She also endorses a lower abdominal pain. She denies any fevers, dysuria, hematuria, and urinary frequency. ROS: GENERAL: Denies fever of chills CV: Denies chest pain PHYSICAL EXAMINATION: GENERAL: Well-appearing, well-nourished and in no acute distress. HEAD: Atraumatic, normocephalic. EYES: Pupils equal round extraocular movements intact, conjunctiva are normal. ENT: Nares patent NECK: Normal range of motion LUNGS: No respiratory distress Musculoskeletal: Normal range of motion NEUROLOGICAL: Normal speech, normal gait. PSYCH: Normal mood, normal affect. MDM: Patient seen and examined for rapid initial assessment. Vital signs reviewed. A comprehensive ED assessment and evaluation of the patient, analysis of test results and completion of the medical decision making process will be conducted by additional ED providers. - Related Data Allergies/Adverse Reactions: No Known Allergies Allergy (Verified 03/12/18 10:12) Past Medical History - Social History Chew tobacco use (# tins/day): No Frequency of alcohol use: None Drug Abuse: None - Past Medical History Cardiac Medical History: Reports: Hx Hypertension Pulmonary Medical History: Reports: Hx Asthma, Hx COPD Renal/ Medical History: Reports: Hx Renal Insufficiency. Denies: Hx Peritoneal Dialysis GI Medical History: Reports: Hx Diverticulitis - dx last year, Hx Gastroesophageal Reflux Disease Infectious Medical History: Reports: Hx C-Diff - 2 weeks ago-tx with antibiotics Past Surgical History: Reports: Hx Cholecystectomy, Hx Hysterectomy Physical Exam - Vital signs Vitals: Temp Pulse Resp BP Pulse Ox 98.5 F 64 20 151/69 H 96 03/12/18 10:15 03/12/18 10:15 03/12/18 10:15 03/12/18 10:15 03/12/18 10:15 Course - Vital Signs Vital signs: Temp Pulse Resp BP Pulse Ox 98.5 F 64 20 151/69 H 96 03/12/18 10:15 03/12/18 10:15 03/12/18 10:15 03/12/18 10:15 03/12/18 10:15 Doctor's Discharge - Discharge Referrals: CARMEN JIM MD [Primary Care Provider] - Follow up as needed
--- NOTE | 2018-03-12 11:20 | RADIOLOGY REPORT (SQ) ---
EXAM DESCRIPTION: CHEST SINGLE VIEW COMPLETED DATE/TIME: 03/12/2018 11:10 am REASON FOR STUDY: vomiting COMPARISON: 09/24/2017 EXAM PARAMETERS: NUMBER OF VIEWS: One view. TECHNIQUE: Single frontal radiographic view of the chest acquired. RADIATION DOSE: NA LIMITATIONS: None. FINDINGS: LUNGS AND PLEURA: No opacities, masses or pneumothorax. No pleural effusion. MEDIASTINUM AND HILAR STRUCTURES: No masses. Contour normal. HEART AND VASCULAR STRUCTURES: Normal heart size. Atherosclerotic aorta. BONES: No acute findings. Serpiginous sclerosis in the left humerus, possibly bone infarct. HARDWARE: None in the chest. OTHER: No other significant finding. IMPRESSION: No evidence of acute cardiopulmonary process. TECHNICAL DOCUMENTATION: JOB ID: [id number] [employer]- All Rights Reserved Reading location - IP/workstation name: [email or web address]
[2018-03-12 11:46] LABS: ABSOLUTE EOSINOPHILS # (AUTO) 0.1 10^3/uL (0.0-0.6); ABSOLUTE LYMPHOCYTES (AUTO) 0.7 10^3/uL (0.5-4.7); ABSOLUTE MONOCYTES (AUTO) 0.6 10^3/uL (0.1-1.4); ABSOLUTE NEUT (AUTO) 2.9 10^3/uL (1.7-8.2); BASOPHILS % (AUTO) 0.5 % (0-2); EOSINOPHILS % (AUTO) 1.6 % (0-6); HEMATOCRIT 31.9 % (36.0-47.0); LYMPHOCYTES % (AUTO) 16.3 % (13-45); MEAN CORPUSCULAR HGB CONC 34.5 g/dL (32.0-36.0); MEAN CORPUSCULAR VOLUME 84 fl (80-97); MONOCYTES % (AUTO) 13.8 % (3-13); PLATELET COUNT 195 10^3/uL (150-450); RED BLOOD COUNT 3.79 10^6/uL (3.72-5.28); RED CELL DISTRIBUTION WIDTH 15.4 % (11.5-14.0); SEGMENTED NEUTROPHILS % (AUTO) 67.8 % (42-78); TOTAL CELLS COUNTED % (AUTO) 100 %; WHITE BLOOD COUNT 4.2 10^3/uL (4.0-10.5)
[2018-03-12 12:06] LABS: ALANINE AMINOTRANSFERASE 8 U/L (9-52); ALBUMIN 3.4 g/dL (3.5-5.0); ALKALINE PHOSPHATASE 68 U/L (38-126); ANION GAP 6 (5-19); ASPARTATE AMINO TRANSFERASE 15 U/L (14-36); BILIRUBIN,DIRECT 0.3 mg/dL (0.0-0.4); BILIRUBIN,TOTAL 0.6 mg/dL (0.2-1.3); BLOOD UREA NITROGEN 28 mg/dL (7-20); CALCIUM 8.8 mg/dL (8.4-10.2); CARBON DIOXIDE 30 mmol/L (22-30); CHLORIDE 104 mmol/L (98-107); GLUCOSE 91 mg/dL (75-110); LIPASE 17.1 U/L (23-300); POTASSIUM 3.8 mmol/L (3.6-5.0); SODIUM 139.8 mmol/L (137-145); TOTAL PROTEIN 5.9 g/dL (6.3-8.2)
[2018-03-12 12:28] LABS: APPEARANCE,URINE SLIGHTLY-CLOUDY; BILIRUBIN,URINE NEGATIVE (NEGATIVE); COLOR,URINE YELLOW; GLUCOSE, URINE NEGATIVE (NEGATIVE); KETONES,URINE NEGATIVE (NEGATIVE); LEUKOCYTE ESTERASE,URINE TRACE (NEGATIVE); NITRITE,URINE POSITIVE (NEGATIVE); PROTEIN,URINE NEGATIVE (NEGATIVE); URINE SPECIFIC GRAVITY 1.019; UROBILINOGEN,URINE NEGATIVE mg/dL (<2.0)
--- NOTE | 2018-03-12 12:37 | ER Document Report ---
ED General - General Chief Complaint: Nausea/Vomiting/Diarrhea Stated Complaint: THROWING UP/ABDOMINAL PAIN Time Seen by Provider: 03/12/18 10:41 Notes: Patient says she is been experiencing vomiting and diarrhea since yesterday. The vomiting began first and she is done so about 3 times followed by diarrhea a couple of times. She is not seen any blood in the vomitus or in her stools. Says she has some left lower quadrant abdominal pain. Was diagnosed last year with diverticulitis. She lives with her and he has been well. Oth erwise, does not leave the house except for miscellaneous shopping. Has not been sick in any way recently. Has no UTI symptoms. Has not had any fever. PMH: Asthma and COPD, ex-smoker, cholecystectomy. TRAVEL OUTSIDE OF THE [place] IN LAST 30 DAYS: No - Related Data Allergies/Adverse Reactions: No Known Allergies Allergy (Verified 03/12/18 10:45) Past Medical History - Social History Smoking Status: Former Smoker Chew tobacco use (# tins/day): No Frequency of alcohol use: None Drug Abuse: None Family History: Reviewed & Not Pertinent Patient has suicidal ideation: No Patient has homicidal ideation: No - Past Medical History Cardiac Medical History: Reports: Hx Hypertension Pulmonary Medical History: Reports: Hx Asthma, Hx COPD Renal/ Medical History: Reports: Hx Renal Insufficiency GI Medical History: Reports: Hx Diverticulitis - dx last year, Hx Gastroesophageal Reflux Disease Infectious Medical History: Reports: Hx C-Diff - 2 weeks ago-tx with antibiotics Past Surgical History: Reports: Hx Cholecystectomy, Hx Hysterectomy Review of Systems - Review of Systems Notes: REVIEW OF SYSTEMS: CONSTITUTIONAL : Denies fever. EENT: Denies eye, ear, nose or mouth or throat pain or other symptoms. CARDIOVASCULAR: Denies chest pain. RESPIRATORY: Denies cough, chest congestion, or shortness of breath. GASTROINTESTINAL: See HPI. Has vomiting and diarrhea and left lower quadrant abdominal pain. GENITOURINARY: Denies difficulty or painful urinating, urinary frequency, blood in urine. MUSCULOSKELETAL: Denies back or neck pain. Denies joint pain or swelling. SKIN: Denies rash or skin lesions. NEUROLOGICAL: Denies LOC or altered mental status. Denies headache. Denies sensory loss or motor deficits. ALL OTHER SYSTEMS REVIEWED AND NEGATIVE. Physical Exam - Vital signs Vitals: Temp Pulse Resp BP Pulse Ox 98.5 F 64 20 151/69 H 96 03/12/18 10:15 03/12/18 10:15 03/12/18 10:15 03/12/18 10:15 03/12/18 10:15 Interpretation: Normal Notes: PHYSICAL EXAMINATION: GENERAL: Well-appearing, in no acute distress. Vital signs are all normal. HEAD: Atraumatic, normocephalic. EYES: Pupils equal round and reactive to light, extraocular movements intact. ENT: oropharynx clear without exudates. Moist mucous membranes. NECK: Normal range of motion, supple. LUNGS: Breath sounds clear and equal bilaterally. HEART: Regular rate and rhythm without murmurs. ABDOMEN: Soft, only minimally tender in left lower quadrant. No guarding or rebound. No masses. BACK: No tenderness throughout entire back. EXTREMITIES: Normal range of motion without pain. NEUROLOGICAL: Normal speech, normal gait. Normal sensory, motor, and reflex exams. Awake, alert, and oriented x3. Cranial nerves normal. PSYCH: Normal mood, normal affect. SKIN: Warm, dry, no rashes. Course - Re-evaluation Re-evalutation: 03/12/18 12:45 Patient was given IV fluids. Labs show mild renal insufficiency which the patient has a history of. Patient also apparently has a history of diverticulitis in the past so I am ordering a CT scan of the patient's abdomen. 03/12/18 16:54 Patient is doing much better. She has not had any vomiting or diarrhea since being here in the emergency department. Says her stomach feels much better. Her CT scan did not show anything troubling. Her lab work was also essentially normal. - Vital Signs Vital signs: Temp Pulse Resp BP Pulse Ox 97.9 F 64 12 152/70 H 93 03/12/18 17:00 03/12/18 10:15 03/12/18 17:01 03/12/18 17:00 03/12/18 17:01 - Laboratory Result Diagrams: 03/12/18 11:30 03/12/18 11:30 Laboratory results interpreted by me: 03/12/18 03/12/18 03/12/18 11:30 11:30 11:30 Hgb 11.0 L Hct 31.9 L RDW 15.4 H Monocytes % 13.8 H BUN 28 H Est GFR ( Amer) 54 L Est GFR (Non-Af Amer) 45 L ALT 8 L Total Protein 5.9 L Albumin 3.4 L Lipase 17.1 L Urine Nitrite POSITIVE H Ur Leukocyte Esterase TRACE H Valproic Acid < 10.0 L - Diagnostic Test Radiology reviewed: Image reviewed, Reports reviewed - CT scan shows a lot of diverticulosis of the left colon, but no diverticulitis. Otherwise unremarkable CT scan of the abdomen and pelvis. - EKG Interpretation by Me EKG shows normal: Sinus rhythm Rate: Normal Rhythm: NSR Additional EKG results interpreted by me: 03/12/18 12:46 EKG is normal. Discharge - Discharge Clinical Impression: Nausea vomiting and diarrhea, Abdominal pain, Diverticulosis Condition: Stable Disposition: HOME, SELF-CARE Additional Instructions: VOMITING: Vomiting (or nausea without vomiting) can be caused by many other different problems. It can mean that something's wrong with the stomach, such as ulcers or inflammation or the intestinal tract, such as appendicitis. But it can also be a symptom of a problem that has nothing to do with the stomach or intestines. Vomiting is common with severe headaches, earaches, tonsillitis, and kidney infections, etc. We see it with pneumonia or heart attacks. Drugs can cause nausea and vomiting. Many abdominal problems cause vomiting; for example, gallstones, kidney stones, pancreatitis, and intestinal obstruction (blocked bowels). In most cases, curing the vomiting depends on fixing the problem that caused it. For temporary relief, we may use an anti-nausea medicine. For home use, we can prescribe suppositories, chewable pills, pills that dissolve in the mouth, or liquid anti-nausea drugs. If the vomiting seems to be caused by a problem in the stomach, acid-suppressing drugs may be prescribed as well. It's important to avoid dehydration. Sip small amounts of clear liquids (soft drinks, tea, broth, etc) . Try to take fluids frequently even if you are vomiting to prevent dehydration. Take increasing amounts of fluid and when liquids are being consumed successfully, advance to small amounts of bland food (toast, soups, mashed potatoes, etc.) until you are able to resume a regular diet. Avoid aspirin, tobacco, and alcohol. If the vomiting worsens, if the problem that's making you vomit worsens, or if there's evidence of bleeding in the stomach (such as black, tarry stool, or bloody or black vomit), you should return immediately. Also, return if abdominal pain worsens or becomes localized to one area or you develop high fever. Call your doctor if you aren't improved in 24 hours. DIARRHEA, NON-SPECIFIC: Diarrhea means frequent, watery stools. There are many causes. Any problem that keeps the intestinal tract from absorbing water from the stool can lead to diarrhea. A sudden new diarrhea problem is usually caused by a virus, food sensitivity, toxic bacteria, or drugs. In this case, we expect the problem to go away soon. Testing is done only if you seem seriously ill from the diarrhea. If you have chronic diarrhea, or diarrhea that keeps coming back, we need to find out why. Chronic diarrhea can be due to inflammation of the bowels such as Crohn's disease or ulcerative colitis, food sensitivity such as intolerance to lactose or wheat protein, irritable bowel syndrome, and other problems. If your diarrhea is a significant problem but it's not clear why you have it, we'll refer you to a specialist for further testing. During an episode of diarrhea, drink small amounts (two to six ounces) of clear liquids (soft drinks, sport drinks, herb teas, broth, etc). Take fluids frequently to prevent dehydration. It's usually not a problem to take mild anti- diarrhea medication such as Kaopectate or Pepto-Bismol. As the diarrhea eases, advance to small amounts of bland food (mashed potato, toast) for 24 hours. Call the physician if blood appears in your vomit or stool, if vomiting lasts longer than 24 hours, if the abdominal pain worsens or becomes localized to one area, if you develop high fever, or if you become lightheaded and weak. VIRAL SYNDROME: The physician has diagnosed a viral infection. Viruses not only cause "colds," but can cause many different symptoms including generalized aching, fever, headache, cough, diarrhea, nausea, vomiting, and fatigue. The treatment, for the most part, is simply relief of symptoms. This means that antibiotics are usually not given. Rest, fluids, pain medications and, occasionally, medication for the specific symptoms that are most bothersome will be prescribed. Use good handwashing to avoid passing the virus to others. Shared toys should be cleaned with disinfectant. Clean the toilets, sinks, and counter surfaces in bathrooms. Launder clothing in hot water. Contact the physician if you develop any new or unusual symptoms such as severe headache, stiff neck, high fever, chest pain, productive cough, or shortness of breath. You should be rechecked if you don't see marked improvement within seven to 10 days. INTRAVENOUS (I V) FLUIDS: As part of your care today, you received intravenous (IV) fluids. IV fluids are administered to patients who are dehydrated or to those who have certain chemical (electrolyte) abnormalities that need correcting. ANTINAUSEA MEDICATION: You have been given a medication to suppress nausea and vomiting. This type of medication can be given as a shot, pill, or suppository. It will usually last for many hours. Pills and shots usually last six to eight hours. For the typical illness, only one or two doses of the medication may be necessary. Mild lightheadedness may occur. This type of medicine can cause d rowsiness. Do not drive or operate dangerous machinery while under its influence. Do not mix with alcohol. See your doctor at once if you have muscle spasms or tightness, or uncontrollable motions (particularly of the neck, mouth, or jaw). Persistent vomiting or severe lightheadedness should also be evaluated by the physician. FOLLOW-UP CARE: If you have been referred to a physician for follow-up care, call the physicians office for an appointment as you were instructed or within the next two days. If you experience worsening or a significant change in your symptoms, notify the physician immediately or return to the Emergency Department at any time for re-evaluation. Prescriptions: Ondansetron [Zofran Odt 4 mg Tablet] 1 - 2 tab PO Q4H PRN #12 tab.rapdis PRN Reason: For Nausea/Vomiting Referrals: CARMEN JIM MD [ACTIVE STAFF] - Follow up as needed
[2018-03-12] MEDS ORDERED: CEFTRIAXONE INJ 1000 MG VIAL IV ONE (12:40)
--- NOTE | 2018-03-12 12:49 | EKG REPORT ---
SEVERITY:- BORDERLINE ECG - SINUS RHYTHM PROBABLE LATERAL INFARCT, OLD : Confirmed by: Alejandro Montiel MD 12-Mar-2018 12:47:48
--- NOTE | 2018-03-12 16:41 | RADIOLOGY REPORT (SQ) ---
EXAM DESCRIPTION: CT ABD/PELVIS WITH IV ORAL COMPLETED DATE/TIME: 03/12/2018 12:45 pm REASON FOR STUDY: LLQ abdominal pain plus vomiting and diarrhea COMPARISON: CT abdomen and pelvis 09/24/2017, 06/07/2017 TECHNIQUE: CT scan of the abdomen and pelvis performed using helical scanning technique with dynamic intravenous contrast injection. Patient drank oral contrast. Images reviewed with lung, soft tissue , and bone windows. Reconstructed coronal and sagittal MPR images reviewed. Delayed images for evalua tion of the urinary system also acquired. All images stored on PACS. All CT scanners at this facility use dose modulation, iterative reconstruction, and/or weight based d osing when appropriate to reduce radiation dose to as low as reasonably achievable (ALARA). [facility]: Dose Right [facility]: CareDose [facility]: Dose Right [facility]: Teradose 4D [facility]: [employer] CONTRAST TYPE AND DOSE: 82 mL of IV Omnipaque 350- low osmolar. RENAL FUNCTION: GFR > 60. RADIATION DOSE: 27 mGy. LIMITATIONS: None. FINDINGS: LOWER CHEST: No significant findings. No nodules or infiltrates. Small hiatal hernia LIVER: Normal size. No masses. No dilated ducts. SPLEEN: Normal size. No focal lesions. PANCREAS: No masses. No significant calcifications. No adjacent inflammation or peripancreatic fluid collections. Pancreatic duct not dilated. GALLBLADDER: Surgically absent ADRENAL GLANDS: No significant masses or asymmetry. RIGHT KIDNEY AND URETER: No solid masses. No significant calcifications. No hydronephrosis or hyd roureter. LEFT KIDNEY AND URETER: No solid masses. No significant calcifications. No hydronephrosis or hydr oureter. AORTA AND VESSELS: No aneurysm. No dissection. Renal arteries, SMA, celiac without stenosis. RETROPERITONEUM: No retroperitoneal adenopathy, hemorrhage or masses. BOWEL AND PERITONEAL CAVITY: Patient drank oral contrast. No CT evidence of bowel obstruction or naila e intraperitoneal air or fluid. Heavy burden of diverticulosis along the distal descending sigmoid c olon in the pelvis. No gross CT evidence of acute diverticulitis or pericolic abscess. APPENDIX: Normal. PELVIS: No mass. No free fluid. Normal bladder. Post hysterectomy ABDOMINAL WALL: No masses. No hernias. BONES: No significant or acute findings. OTHER: No other significant finding. IMPRESSION: No acute findings Post cholecystectomy and hysterectomy Heavy burden of diverticulosis along the distal descending and sigmoid colon without gross CT evidenc e of acute diverticulitis TECHNICAL DOCUMENTATION: JOB ID: [id number] Quality ID # [id number]: Final reports with documentation of one or more dose reduction techniques (e.g., Au tomated exposure control, adjustment of the mA and/or kV according to patient size, use of iterative reconstruction technique) 2010 [employer]- All Rights Reserved Reading location - IP/workstation name: [email or web address]
[2018-03-12 17:13] VITALS: BP 152/70
== END 2018-03-12 17:18 | disposition home or self-care (01) ==
LOC: ER 10:10
DX: R11.2 Nausea with vomiting, unspecified (principal); R19.7 Diarrhea, unspecified; K57.30 Diverticulosis of large intestine without perforation or abscess without bleeding; R10.32 Left lower quadrant pain; N28.9 Disorder of kidney and ureter, unspecified; I10 Essential (primary) hypertension; J44.9 Chronic obstructive pulmonary disease, unspecified; Z87.891 Personal history of nicotine dependence; Z87.19 Personal history of other diseases of the digestive system; Z90.49 Acquired absence of other specified parts of digestive tract; Z90.710 Acquired absence of both cervix and uterus
CPT/HCPCS: 93005; 99285; 96361; 96375; 96365; 36415; 87040; 87086; 83690; 85025; 87088; 80053; 81001; 84484; 80164; 87186; 71045; 74177; 93010; J0696; J2405; J7030

== ENCOUNTER 2018-08-24 14:07 | Emergency (ER) | payer MEDICARE, MEDICAID ==
[2018-08-24 14:15] VITALS: BP 140/49
--- NOTE | 2018-08-24 14:32 | ER Document Report ---
HPI - HPI Patient complains to provider of: rash Time Seen by Provider: 08/24/18 14:18 Onset: Last week Onset/Duration: Persistent Quality of pain: Other - itchy 5/5 Severity: None Pain Level: Denies Context: Patient presents emergency department with complaints of poison kiki and exposure. Patient reports that she was helping a neighbor pull out weeds and was exposed to poison kiki last week. She reports she is itching to her arms and legs and now it spread to her face. She has been using calamine and Benadryl without relief relief of symptoms. Denies other symptoms such as fever vomiting diarrhea. Associated Symptoms: None Exacerbated by: Denies Relieved by: Denies Similar symptoms previously: No Recently seen / treated by doctor: No - CONSTITUTIONAL Constitutional: DENIES: Fever, Chills - REPRODUCTIVE Reproductive: DENIES: : Past Medical History - General Information source: Patient - Social History Smoking Status: Current Every Day Smoker Cigarette use (# per day): Yes Frequency of alcohol use: None Drug Abuse: None Lives with: Family Family History: Reviewed & Not Pertinent Patient has suicidal ideation: No Patient has homicidal ideation: No - Past Medical History Cardiac Medical History: Reports: Hx Hypertension Pulmonary Medical History: Reports: Hx Asthma, Hx COPD Renal/ Medical History: Reports: Hx Renal Insufficiency. Denies: Hx Peritoneal Dialysis GI Medical History: Reports: Hx Diverticulitis - dx last year, Hx Gastroesophageal Reflux Disease Infectious Medical History: Reports: Hx C-Diff - 2 weeks ago-tx with antibiotics Past Surgical History: Reports: Hx Cholecystectomy, Hx Hysterectomy Vertical Provider Document - CONSTITUTIONAL Agree With Documented VS: Yes Exam Limitations: No Limitations General Appearance: WD/WN, No Apparent Distress - nontoxic looking - INFECTION CONTROL TRAVEL OUTSIDE OF THE [place] IN LAST 30 DAYS: No - HEENT HEENT: Atraumatic, Normocephalic. negative: Conjuctival Injection - NECK Neck: Normal Inspection, Supple. negative: Lymphadenopathy-Left, Lymphadenopathy-Right - RESPIRATORY Respiratory: Breath Sounds Normal, No Respiratory Distress - CARDIOVASCULAR Cardiovascular: Regular Rate, Regular Rhythm - GI/ABDOMEN Gastrointestinal: Abdomen Soft, Abdomen Non-Tender - MUSCULOSKELETAL/EXTREMETIES Musculoskeletal/Extremeties: MAEW, FROM, Non-Tender - NEURO Level of Consciousness: Awake, Alert, Appropriate Motor/Sensory: No Motor Deficit - DERM Integumentary: Warm, Dry, Rash - Generalized erythemic rash with streaks noted to arms and legs some erythema noted to below bilateral eyes more on the right than on the left. skin tear noted to left forearm. no pustules, warmth or discharge noted. no rash noted to abdomen/back Adult Front & Back Diagram: 1 - erythemic rash with streaks noted to bilateral arms/legs 2 - erythemic rash, blanches to bilateral forearms, no pustules/vesicles, 3 - bilateral erythemic rash, some streaks noted, +vikki no open wounds /sores noted, no pustules, no vesicles. 4 - skin tear noted, no active bleeding ~2x2 area Course - Re-evaluation Re-evalutation: 08/24/18 Patient was instructed on the importance of taking medication Benadryl and Keflex as prescribed and indicated. Also avoid at showers avoid itching apply cool packs with any intense itching. She verbalized understanding to all instructions. Dictation of this chart was performed using voice recognition software; therefore, there may be some unintended grammatical errors. - Vital Signs Vital signs: Temp Pulse Resp BP Pulse Ox 98.1 F 58 L 16 140/49 H 93 08/24/18 14:13 08/24/18 14:13 08/24/18 14:13 08/24/18 14:13 08/24/18 14:13 Discharge - Discharge Clinical Impression: Poison kiki dermatitis Condition: Stable Disposition: HOME, SELF-CARE Instructions: Cephalexin ([facility]), Use of Diphenhydramine, Poison Kiki ([facility]) Additional Instructions: *You have been treated for poison kiki exposure *Take medication as prescribed *Monitor your skin for signs of infection such as pain, redness, swelling, warmth *Avoid itching take Benadryl as indicated avoid hot showers *Follow up with your primary care provider within 5 days *Return to ED for signs of infection, worsening condition, changes, needs Monitor your blood pressure. Your blood pressure was elevated today. This may be because you were anxious, in pain or because you need medication. It is important to follow up with your primary care provider for full evaluation. Prescriptions: Cephalexin Monohydrate [Keflex 250 Mg Capsule] 250 mg PO QID #20 capsule Forms: Elevated Blood Pressure
== END 2018-08-24 14:46 | disposition home or self-care (01) ==
LOC: ER 14:07
DX: L23.7 Allergic contact dermatitis due to plants, except food (principal); S51.812A Laceration without foreign body of left forearm, initial encounter; X58.XXXA Exposure to other specified factors, initial encounter; I10 Essential (primary) hypertension; J44.9 Chronic obstructive pulmonary disease, unspecified; F17.210 Nicotine dependence, cigarettes, uncomplicated
CPT/HCPCS: 99282

== ENCOUNTER 2018-10-18 10:41 | Emergency (ER) | payer MEDICARE, MEDICAID ==
--- NOTE | 2018-10-18 11:13 | ER Document Report ---
ED Medical Screen (RME) - General Chief Complaint: General Weakness Stated Complaint: WEAKNESS Time Seen by Provider: 10/18/18 10:58 Notes: Patient is a 68-year-old female who presents the emergency department with a chief complaint of weakness. Patient states that her symptoms started this morning. She denies any dizziness. Patient states that she also had some diarrhea that started this morning. Her who is at bedside states that she has had a decreased appetite for the past few days and has not been eating well. Patient does have a history of hyponatremia and is on neurtrex because she had her sodium increased too quickly when she was hyponatremic. Has history of hyperlipidemia, hypertension, diverticulitis, GERD, cholecystectomy, knee hysterectomy, renal insufficiency, and C. difficile. She denies any parasthesias, difficulty walking, vomiting, or nausea. Exam: 4/5 Upper extremity strength. I have greeted and performed a rapid initial assessment of this patient. A comprehensive ED assessment and evaluation of the patient, analysis of test results and completion of medical decision making process will be conducted by an additional ED providers. TRAVEL OUTSIDE OF THE [place] IN LAST 30 DAYS: No - Related Data Allergies/Adverse Reactions: No Known Allergies Allergy (Verified 10/18/18 10:42) Past Medical History - Social History Frequency of alcohol use: None - Past Medical History Cardiac Medical History: Reports: Hx Hypertension Pulmonary Medical History: Reports: Hx Asthma, Hx COPD Renal/ Medical History: Reports: Hx Renal Insufficiency. Denies: Hx Peritoneal Dialysis GI Medical History: Reports: Hx Diverticulitis - dx last year, Hx Gastroesophageal Reflux Disease Infectious Medical History: Reports: Hx C-Diff - 2 weeks ago-tx with antibiotics Past Surgical History: Reports: Hx Cholecystectomy, Hx Hysterectomy
[2018-10-18 11:33] LABS: ABSOLUTE LYMPHOCYTES (AUTO) 0.8 10^3/uL (0.5-4.7); ABSOLUTE MONOCYTES (AUTO) 0.3 10^3/uL (0.1-1.4); ABSOLUTE NEUT (AUTO) 1.4 10^3/uL (1.7-8.2); BASOPHILS % (AUTO) 1.3 % (0-2); EOSINOPHILS % (AUTO) 1.4 % (0-6); HEMATOCRIT 34.8 % (36.0-47.0); HEMOGLOBIN 11.8 g/dL (12.0-15.5); LYMPHOCYTES % (AUTO) 32.3 % (13-45); MEAN CORPUSCULAR HEMOGLOBIN 28.7 pg (27.0-33.4); MEAN CORPUSCULAR VOLUME 85 fl (80-97); MONOCYTES % (AUTO) 11.5 % (3-13); PLATELET COUNT 215 10^3/uL (150-450); RED BLOOD COUNT 4.12 10^6/uL (3.72-5.28); SEGMENTED NEUTROPHILS % (AUTO) 53.5 % (42-78); TOTAL CELLS COUNTED % (AUTO) 100 %; WHITE BLOOD COUNT 2.5 10^3/uL (4.0-10.5)
--- NOTE | 2018-10-18 11:39 | ER Document Report ---
ED General - General Chief Complaint: General Weakness Stated Complaint: WEAKNESS Time Seen by Provider: 10/18/18 10:58 Information source: Patient Notes: HPI: Very sweet 68-year-old female with past medical history as recorded who presents today stating that she feels generalized "weakness" this morning. She denies any weakness to one side of the other. She denies any headache, blurry vision, neck pain, trauma, cough, shortness of breath, chest pain, abdominal pain, dysuria, or back pain. She did have 2 episodes of nonbloody diarrhea this morning. Patient states she has had a decreased appetite over the last 3 days but is uncertain as of why. No nausea or vomiting. ROS: See HPI All other review of systems reviewed and otherwise negative Reviewed vital signs and nursing note as charted by RN. PHYSICAL EXAM: CONSTITUTIONAL: Alert and oriented and responds appropriately to questions. Well-appearing; well-nourished HEAD: Normocephalic; atraumatic EYES: PERRL; Conjunctivae clear, sclerae non-icteric ENT: Normal nose; no rhinorrhea; moist mucous membranes; pharynx without lesions noted NECK: Supple without meningismus; no carotid bruit; non-tender; no cervical lymphadenopathy, no masses CARD: Regular rate and rhythm; no murmurs; symmetric distal pulses RESP: Normal chest excursion without splinting or tachypnea; breath sounds clear and equal bilaterally; no wheezes, no rhonchi, no rales ABD/GI: Normal bowel sounds; non-distended; soft, non-tender to deep palpation of all 4 quadrants of the abdomen with no abdominal bruits; no palpable organomegaly or masses BACK: The back appears normal and is non-tender to palpation EXT: Normal ROM in all joints; non-tender to palpation; no edema SKIN: No acute lesions noted NEURO: CN 2-12 intact; 5/5 bilateral upper and lower extremity strength with sensation intact to light touch; no nystagmus with a normal cerebellar exam PSYCH: The patient's mood and manner are appropriate. Grooming and personal hygiene are appropriate. TRAVEL OUTSIDE OF THE [place] IN LAST 30 DAYS: No - Related Data Allergies/Adverse Reactions: No Known Allergies Allergy (Verified 10/18/18 10:42) Past Medical History - Social History Smoking Status: Unknown if Ever Smoked Frequency of alcohol use: None Family History: Reviewed & Not Pertinent Patient has suicidal ideation: No Patient has homicidal ideation: No - Past Medical History Cardiac Medical History: Reports: Hx Hypertension Pulmonary Medical History: Reports: Hx Asthma, Hx COPD Renal/ Medical History: Reports: Hx Renal Insufficiency. Denies: Hx Peritoneal Dialysis GI Medical History: Reports: Hx Diverticulitis - dx last year, Hx Gastroes ophageal Reflux Disease Infectious Medical History: Reports: Hx C-Diff - 2 weeks ago-tx with antibiotics Past Surgical History: Reports: Hx Cholecystectomy, Hx Hysterectomy Course - Re-evaluation Re-evalutation: Given the above history and physical examination we will order basic labs, electrolyte panel, EKG and troponin, and reassess. Patient has no headache, neck pain, or focal weakness or numbness. I do not believe a CT scan of the head is necessary at this particular moment. 10/18/18 11:39 EKG shows a heart rate of 55, normal sinus rhythm, normal axis, no ST elevation or depression. 10/18/18 11:54 No change in examination. I will provide a liter of fluid. EKG as recorded. Urine analysis is consistent with a possible urinary tract infection. Patient still has no pain. I will provide a liter of fluid and a gram of Rocephin. Pending troponin level, but the patient does deny any chest pain. Slightly low white blood cell count, with the patient having this previously. Other cell lines appear within normal limits. Patient is not neutropenic. 10/18/18 12:31 Patient still has no pain. Vital signs are stable. Antibiotics have been provided. Urine culture has been sent. Patient still has no focal neurological deficits. A liter of fluid has been provided. Patient does have a primary care physician. Patient will be discharged home with strict return precautions and follow-up with the primary care physician on a course of antibiotics with urine culture pending. - Laboratory Result Diagrams: 10/18/18 11:10 10/18/18 11:10 Laboratory results interpreted by me: 10/18/18 10/18/18 10/18/18 11:10 11:10 11:10 WBC 2.5 L Hgb 11.8 L Hct 34.8 L Absolute Neutrophils 1.4 L Carbon Dioxide 31 H BUN 24 H Est GFR ( Amer) 51 L Est GFR (Non-Af Amer) 42 L Ur Leukocyte Esterase LARGE H Discharge - Discharge Clinical Impression: Generalized weakness Diarrhea Qualifiers: Diarrhea type: unspecified type Qualified Code(s): R19.7 - Diarrhea, unspecified UTI (urinary tract infection) Qualifiers: Urinary tract infection type: acute cystitis Hematuria presence: without hematuria Qualified Code(s): N30.00 - Acute cystitis without hematuria Condition: Good Disposition: HOME, SELF-CARE Additional Instructions: Come back immediately with any increased weakness fatigue, fevers, vomiting, pain, change in mental status, or any other acute problems. Please make sure that you follow-up with the primary care provider as we have discussed for recheck of the urine analysis as well as the urine culture. Also let them know that your white blood cell count appears to be very low. Prescriptions: Cephalexin Monohydrate [Keflex 500 mg Capsule] 500 mg PO Q6H 7 Days #28 capsule
[2018-10-18 11:46] LABS: ALANINE AMINOTRANSFERASE 20 U/L (9-52); ALBUMIN 3.9 g/dL (3.5-5.0); ALKALINE PHOSPHATASE 61 U/L (38-126); ANION GAP 6 (5-19); APPEARANCE,URINE SLIGHTLY-CLOUDY; ASPARTATE AMINO TRANSFERASE 23 U/L (14-36); BILIRUBIN,DIRECT 0.2 mg/dL (0.0-0.4); BILIRUBIN,TOTAL 0.5 mg/dL (0.2-1.3); BILIRUBIN,URINE NEGATIVE (NEGATIVE); BLOOD UREA NITROGEN 24 mg/dL (7-20); CALCIUM 9.7 mg/dL (8.4-10.2); CARBON DIOXIDE 31 mmol/L (22-30); CHLORIDE 103 mmol/L (98-107); COLOR,URINE YELLOW; GLUCOSE 80 mg/dL (75-110); GLUCOSE, URINE NEGATIVE (NEGATIVE); KETONES,URINE NEGATIVE (NEGATIVE); LEUKOCYTE ESTERASE,URINE LARGE (NEGATIVE); NITRITE,URINE NEGATIVE (NEGATIVE); POTASSIUM 4.5 mmol/L (3.6-5.0); PROTEIN,URINE NEGATIVE (NEGATIVE); TOTAL PROTEIN 6.4 g/dL (6.3-8.2); URINE SPECIFIC GRAVITY 1.014; UROBILINOGEN,URINE NEGATIVE mg/dL (<2.0)
[2018-10-18] MEDS ORDERED: NORMAL SALINE 1000 ML 1,000 ML IV ONE (11:52)
[2018-10-18] MEDS ORDERED: CEFTRIAXONE 1 GM/D5W RTU 1 GM/50 ML RTUPB IV ONE (11:54)
--- NOTE | 2018-10-18 12:15 | RADIOLOGY REPORT (SQ) ---
EXAM DESCRIPTION: CHEST SINGLE VIEW COMPLETED DATE/TIME: 10/18/2018 12:02 pm REASON FOR STUDY: weakness COMPARISON: 03/12/2018 EXAM PARAMETERS: NUMBER OF VIEWS: One view. TECHNIQUE: Single frontal radiographic view of the chest acquired. RADIATION DOSE: NA LIMITATIONS: None. FINDINGS: LUNGS AND PLEURA: No opacities, masses or pneumothorax. No pleural effusion. MEDIASTINUM AND HILAR STRUCTURES: No masses. Contour normal. HEART AND VASCULAR STRUCTURES: Heart normal in size. Normal vasculature. BONES: No acute findings. HARDWARE: None in the chest. OTHER: No other significant finding. IMPRESSION: NO ACUTE RADIOGRAPHIC FINDING IN THE CHEST. TECHNICAL DOCUMENTATION: JOB ID: [id number] [employer]- All Rights Reserved Reading location - IP/workstation name: [email or web address]
[2018-10-18 13:20] VITALS: BP 158/64
--- NOTE | 2018-10-18 23:09 | EKG REPORT ---
SEVERITY:- ABNORMAL ECG - SINUS RHYTHM LVH : Confirmed by: Erica Cunningham 18-Oct-2018 23:08:56
== END 2018-10-18 13:19 | disposition home or self-care (01) ==
LOC: ER 10:41
DX: N30.00 Acute cystitis without hematuria (principal); R53.1 Weakness; R19.7 Diarrhea, unspecified; R63.0 Anorexia; I10 Essential (primary) hypertension; J44.9 Chronic obstructive pulmonary disease, unspecified
CPT/HCPCS: 93005; 36415; 87086; 85025; 80053; 81001; 84484; 71045; 93010; J7030; J0696

== ENCOUNTER → 2019-01-02 | Outpatient (CLI) | payer MEDICARE, MEDICAID ==
--- NOTE | 2019-01-02 11:38 | RADIOLOGY REPORT (SQ) ---
EXAM DESCRIPTION: CHEST PA/LATERAL COMPLETED DATE/TIME: 01/02/2019 11:27 am REASON FOR STUDY: CHRONIC OBSTRUCTIVE PULMONARY DISEASE, UNSPECIFIED COMPARISON: None. EXAM PARAMETERS: NUMBER OF VIEWS: two views TECHNIQUE: Digital Frontal and Lateral radiographic views of the chest acquired. RADIATION DOSE: NA LIMITATIONS: none FINDINGS: LUNGS AND PLEURA: Emphysematous change with mild hyperinflation and flattening of the diap hragm with increased AP diameter of the thorax. No focal consolidation, pleural effusion or pneumoth orax. MEDIASTINUM AND HILAR STRUCTURES: No masses or contour abnormalities. HEART AND VASCULAR STRUCTURES: Enlarged right cardiac silhouette, stable. Aortic atherosclerosis. BONES: No acute findings. HARDWARE: Surgical clips overlie upper abdomen. OTHER: No other significant finding. IMPRESSION: Emphysematous change without evidence of acute cardiopulmonary process. TECHNICAL DOCUMENTATION: JOB ID: [id number] [employer]- All Rights Reserved Reading location - IP/workstation name: [email or web address]
[2019-01-02 12:05] LABS: ABSOLUTE LYMPHOCYTES (AUTO) 0.9 10^3/uL (0.5-4.7); ABSOLUTE MONOCYTES (AUTO) 0.3 10^3/uL (0.1-1.4); ABSOLUTE NEUT (AUTO) 2.6 10^3/uL (1.7-8.2); BASOPHILS % (AUTO) 0.9 % (0-2); EOSINOPHILS % (AUTO) 0.9 % (0-6); HEMATOCRIT 36.2 % (36.0-47.0); HEMOGLOBIN 12.2 g/dL (12.0-15.5); MEAN CORPUSCULAR HEMOGLOBIN 28.1 pg (27.0-33.4); MEAN CORPUSCULAR HGB CONC 33.7 g/dL (32.0-36.0); MEAN CORPUSCULAR VOLUME 83 fl (80-97); MONOCYTES % (AUTO) 8.4 % (3-13); PLATELET COUNT 226 10^3/uL (150-450); RED BLOOD COUNT 4.34 10^6/uL (3.72-5.28); RED CELL DISTRIBUTION WIDTH 14.7 % (11.5-14.0); SEGMENTED NEUTROPHILS % (AUTO) 66.8 % (42-78); TOTAL CELLS COUNTED % (AUTO) 100 %; WHITE BLOOD COUNT 3.9 10^3/uL (4.0-10.5)
[2019-01-02 12:18] LABS: ALBUMIN 4.1 g/dL (3.5-5.0); ALKALINE PHOSPHATASE 62 U/L (38-126); ANION GAP 6 (5-19); ASPARTATE AMINO TRANSFERASE 23 U/L (14-36); BILIRUBIN,DIRECT 0.2 mg/dL (0.0-0.4); BILIRUBIN,TOTAL 0.5 mg/dL (0.2-1.3); BLOOD UREA NITROGEN 31 mg/dL (7-20); CALCIUM 9.8 mg/dL (8.4-10.2); CARBON DIOXIDE 32 mmol/L (22-30); CHLORIDE 101 mmol/L (98-107); CHOLESTEROL 242.17 mg/dL (0-200); GLUCOSE 82 mg/dL (75-110); POTASSIUM 5.3 mmol/L (3.6-5.0); TOTAL PROTEIN 6.7 g/dL (6.3-8.2); TRIGLYCERIDES 64 mg/dL (<150)
[2019-01-02 12:28] LABS: DIRECT LDL 137 mg/dL (<100)
[2019-01-02 12:32] LABS: FREE T4 (FREE THYROXINE) 0.98 ng/dL (0.78-2.19)
[2019-01-02 12:46] LABS: THYROID STIMULATING HORMONE 2.59 uIU/mL (0.47-4.68)
== END ==
LOC: OD 11:05
PROVIDERS: ATTEND Nurse Practitioner Family
DX: E78.5 Hyperlipidemia, unspecified (principal); I10 Essential (primary) hypertension; J44.9 Chronic obstructive pulmonary disease, unspecified; R62.7 Adult failure to thrive
CPT/HCPCS: 36415; 71046; 80053; 80061; 82306; 84439; 84443; 85025

== ENCOUNTER 2019-03-23 18:44 | Emergency (ER) | payer MEDICARE, MEDICAID ==
--- NOTE | 2019-03-23 21:02 | ER Document Report ---
HPI - HPI Time Seen by Provider: 03/23/19 20:49 Pain Level: Denies Notes: 69-year-old female patient with history of hypertension presented emergency department with dysuria over the last 2 days. Patient reports frequent UTIs. She has not seen her primary care physician. She has not had any vomiting, back pain, abdominal pain or fever. - REPRODUCTIVE Reproductive: DENIES: : Past Medical History - General Information source: Patient - Social History Smoking Status: Never Smoker Frequency of alcohol use: None Drug Abuse: None Family History: Reviewed & Not Pertinent Patient has suicidal ideation: No Patient has homicidal ideation: No - Past Medical History Cardiac Medical History: Reports: Hx Hypertension Pulmonary Medical History: Reports: Hx Asthma, Hx COPD Renal/ Medical History: Reports: Hx Renal Insufficiency. Denies: Hx Peritoneal Dialysis GI Medical History: Reports: Hx Diverticulitis - dx last year, Hx Gastroesophageal Reflux Disease Infectious Medical History: Reports: Hx C-Diff - 2 weeks ago-tx with antibiotics Past Surgical History: Reports: Hx Cholecystectomy, Hx Hysterectomy Vertical Provider Document - CONSTITUTIONAL Notes: PHYSICAL EXAMINATION: GENERAL: Well-appearing, well-nourished and in no acute distress. HEAD: Atraumatic, normocephalic. EYES: Pupils equal round extraocular movements intact, conjunctiva are normal. ENT: Nares patent NECK: Normal range of motion LUNGS: No respiratory distress Abdomen: Abdomen soft, nontender, no guarding or rebound. No CVA tenderness. Musculoskeletal: Normal range of motion NEUROLOGICAL: Normal speech, normal gait. PSYCH: Normal mood, normal affect. SKIN: Warm, Dry, normal turgor, no rashes or lesions noted. - INFECTION CONTROL TRAVEL OUTSIDE OF THE [place] IN LAST 30 DAYS: No Course - Re-evaluation Re-evalutation: 03/23/19 22:10 Patient appears well, nontoxic, abdomen soft and nontender. Urinalysis is really not very impressive however given patient's symptoms she will be started on a short course of antibiotics for her dysuria. A urine culture has been ordered and is pending. Strict ED return precautions were discussed, patient verbalized understanding and agreement with same. - Vital Signs Vital signs: Temp Pulse Resp BP Pulse Ox 97.7 F 72 20 151/84 H 99 03/23/19 19:30 03/23/19 19:30 03/23/19 19:30 03/23/19 19:30 03/23/19 19:30 Discharge - Discharge Clinical Impression: Dysuria Condition: Stable Disposition: HOME, SELF-CARE Additional Instructions: Your urinalysis did not appear to be overly infected today. This could be because of your recent antibiotic use. We are starting you on a short course of antibiotics pending a urine culture. Please continue to take Tylenol or ibuprofen for any pain. Return to the emergency department if you begin vomiting, running fevers or having worsening symptoms. Someone will call you in 2 to 3 days if there is any abnormality on your urine culture. Please follow-up with your primary care provider for your recurrent urinary tract infections. Prescriptions: Cephalexin [Keflex] 500 mg PO BID #10 capsule Referrals: VERITO ANTOINE NP [Primary Care Provider] - Follow up as needed
[2019-03-23 21:03] LABS: APPEARANCE,URINE CLEAR; BILIRUBIN,URINE NEGATIVE (NEGATIVE); COLOR,URINE YELLOW; GLUCOSE, URINE NEGATIVE (NEGATIVE); KETONES,URINE NEGATIVE (NEGATIVE); LEUKOCYTE ESTERASE,URINE NEGATIVE (NEGATIVE); NITRITE,URINE NEGATIVE (NEGATIVE); PROTEIN,URINE NEGATIVE (NEGATIVE); URINE SPECIFIC GRAVITY 1.009; UROBILINOGEN,URINE NEGATIVE mg/dL (<2.0)
[2019-03-23] MEDS ORDERED: CEPHALEXIN 500 MG CAPSULE PO ONE (22:02)
[2019-03-23 22:08] VITALS: BP 167/63
== END 2019-03-23 22:15 | disposition home or self-care (01) ==
LOC: ER 18:44
DX: R30.0 Dysuria (principal); I10 Essential (primary) hypertension; J44.9 Chronic obstructive pulmonary disease, unspecified; Z87.440 Personal history of urinary (tract) infections
CPT/HCPCS: 99283; 87086; 81001; A9270

== ENCOUNTER 2019-03-25 12:08 | Emergency (ER) | payer MEDICARE, MEDICAID ==
--- NOTE | 2019-03-25 13:30 | ER Document Report ---
ED Medical Screen (RME) - General Chief Complaint: Psych Problem Stated Complaint: PSYCH EVAL Time Seen by Provider: 03/25/19 13:24 Primary Care Provider: VERITO ANTOINE NP [Primary Care Provider] - Follow up as needed TRAVEL OUTSIDE OF THE [place] IN LAST 30 DAYS: No - HPI Notes: 03/25/19 13:29 Patient is a 69-year-old female who is currently being treated for UTI who presents with family complaining of visual and auditory hallucinations. She is also writing letters to family that does not make any sense and leaving them in the house. Niece states that this is happened frequently in the past. She is not on any medicines for mental health. No SI or HI. She has not been sleeping for 4 days. I have treated and performed a rapid initial assessment of this patient. A c omprehensive ED assessment and evaluation of the patient, analysis of test results and completion of medical decision making process will be conducted by additional ED providers. PHYSICAL EXAMINATION: GENERAL: Well-appearing, well-nourished and in no acute distress. A&O. Answers questions appropriately. - Related Data Allergies/Adverse Reactions: No Known Allergies Allergy (Verified 03/25/19 13:21) Home Medications: Trazadone. Keflex Past Medical History - Social History Chew tobacco use (# tins/day): No - Past Medical History Cardiac Medical History: Reports: Hx Hypertension Pulmonary Medical History: Reports: Hx Asthma, Hx COPD Renal/ Medical History: Reports: Hx Renal Insufficiency. Denies: Hx Peritoneal Dialysis GI Medical History: Reports: Hx Diverticulitis - dx last year, Hx Gastroesophageal Reflux Disease Infectious Medical History: Reports: Hx C-Diff - 2 weeks ago-tx with antibiotics Past Surgical History: Reports: Hx Cholecystectomy, Hx Hysterectomy Physical Exam - Vital signs Vitals: Temp Pulse Resp BP Pulse Ox 98.2 F 76 18 158/63 H 98 03/25/19 12:20 03/25/19 12:20 03/25/19 12:03/25/19 12:03/25/19 12:20 Course - Vital Signs Vital signs: Temp Pulse Resp BP Pulse Ox 98.2 F 76 18 158/63 H 98 03/25/19 12:20 03/25/19 12:20 03/25/19 12:20 03/25/19 12:20 03/25/19 12:20 Doctor's Discharge - Discharge Referrals: VERITO ANTOINE, JAVA WEB ARCHITECT [Primary Care Provider] - Follow up as needed
[2019-03-25 14:24] LABS: ABSOLUTE EOSINOPHILS # (AUTO) 0.1 10^3/uL (0.0-0.6); ABSOLUTE LYMPHOCYTES (AUTO) 0.8 10^3/uL (0.5-4.7); ABSOLUTE MONOCYTES (AUTO) 0.3 10^3/uL (0.1-1.4); ABSOLUTE NEUT (AUTO) 1.9 10^3/uL (1.7-8.2); BASOPHILS % (AUTO) 0.9 % (0-2); HEMATOCRIT 32.8 % (36.0-47.0); HEMOGLOBIN 11.3 g/dL (12.0-15.5); LYMPHOCYTES % (AUTO) 25.5 % (13-45); MEAN CORPUSCULAR HGB CONC 34.3 g/dL (32.0-36.0); MEAN CORPUSCULAR VOLUME 84 fl (80-97); MONOCYTES % (AUTO) 10.7 % (3-13); PLATELET COUNT 190 10^3/uL (150-450); RED BLOOD COUNT 3.89 10^6/uL (3.72-5.28); RED CELL DISTRIBUTION WIDTH 14.9 % (11.5-14.0); SEGMENTED NEUTROPHILS % (AUTO) 59.9 % (42-78); TOTAL CELLS COUNTED % (AUTO) 100 %; WHITE BLOOD COUNT 3.2 10^3/uL (4.0-10.5)
[2019-03-25 14:25] VITALS: BP 163/62
--- NOTE | 2019-03-25 14:40 | ER Document Report ---
ED Psych Disorder / Suicide - General Chief Complaint: Psych Problem Stated Complaint: PSYCH EVAL Time Seen by Provider: 03/25/19 13:24 Primary Care Provider: VERITO ANTOINE NP [NURSE PRACTITIONER] - Follow up as needed Information source: Patient, Relative TRAVEL OUTSIDE OF THE [place] IN LAST 30 DAYS: No - HPI Patient complains to provider of: Agitated, Bizarre behavior. No: Aggression, Hallucinating, Homicidal ideation, Homicidal plan, Homicidal attempt, Overdose, Suicidal ideation, Suicidal plan, Suicidal attempt, Self injury, Other Onset: Last week Onset was: Gradual Quality of pain: denies: No pain, Achy, Burning, Cramping, Dull, Fullness, Pressure, Sharp, Stabbing, Throbbing, Other Severity: Mild Suicide Risk Factors: Hallucinations. No: Age <19, Age >65, Bipolar, Chronic illness, Depressed, Frightened friends/family, Lack of social support, Left letter of attempt, Lethal weapons in home, Loss of rational thought, Male, No spouse, Organized plan, Panic disorder, Prior suicide attempt, Schizophrenia, Substance abuse, Other mental health dx., Other Associated symptoms: Agitated. No: Normal affect, Normal mood, Aggressive, Angry, Anxious, Auditory hallucinations, Circumferential speech, Combative, Confused, Decreased appetite, Depressed, Excessive sleeping, Flat affect, Flight of ideas, Increased appetite, Irritable, Labile, Manic, Paranoid, Psychomotor agitation, Psychomotor depression, Hoahaoism preoccupation, Restlessness, Tactile hallucinations, Tangential speech, Tearful, Unable to sleep, Uncooperative, Visual hallucinations, Other Notes: She apparently is a 69-year-old who advised her daughter and her for apparently patient has been acting bizarre and agitated lately. Not slept in the last 4 days says that she sees or hears voices and sees things occasionally but they have they do clear in the morning. Get worse during the day. She denies any the patient that is suicidal homicidal ideations auditory visual illusions at the present time contracts for safety she is alert and oriented x3. She was recently treated for a UTI. - Related Data Allergies/Adverse Reactions: No Known Allergies Allergy (Verified 03/25/19 13:21) Home Medications: Trazadone. Keflex Past Medical History - General Information source: Patient, Relative - Social History Smoking Status: Never Smoker Chew tobacco use (# tins/day): No Family History: Reviewed & Not Pertinent Patient has suicidal ideation: No Patient has homicidal ideation: No - Past Medical History Cardiac Medical History: Reports: Hx Hypertension Pulmonary Medical History: Reports: Hx Asthma, Hx COPD Renal/ Medical History: Reports: Hx Renal Insufficiency. Denies: Hx Peritoneal Dialysis GI Medical History: Reports: Hx Diverticulitis - dx last year, Hx Gastroesophageal Reflux Disease Infectious Medical History: Reports: Hx C-Diff - 2 weeks ago-tx with antibiotics Past Surgical History: Reports: Hx Cholecystectomy, Hx Hysterectomy Review of Systems - Review of Systems Constitutional: denies: No symptoms reported, See HPI, Chills, Diaphoresis, Fever, Malaise, Weakness, Other, Weight gain, Weight loss, Recent illness EENT: denies: No symptoms reported, See HPI, Eye pain, Eye discharge, Blurred vision, Tearing, Double vision, Ear pain, Ear discharge, Nose pain, Nose congestion, Nose discharge, Sinus pressure, Sinus discharge, Throat pain, Difficulty swallowing, Throat swelling, Mouth pain, Mouth swelling, Dental problem, Vertigo, Other Cardiovascular: denies: No symptoms reported, See HPI, Chest pain, Palpitations, Heart racing, Orthopnea, Dyspnea, Syncope, Dizziness, Lightheaded, Edema, Other, Paroxysmal Nocturnal Dysp Respiratory: denies: No symptoms reported, See HPI, Cough, Hurts to breathe, Hemoptysis, Short of breath, Sputum, Stridor, Wheezing, Other Gastrointestinal: denies: No symptoms reported, See HPI, Abdomen distended, Abdominal pain, Diarrhea, Nausea, Vomiting, Constipation, Blood streaked bowels, Poor appetite, Poor fluid intake, Blood in vomit, Black stools, Rectal bleeding, Last bowel movement, Fecal incontinence, Other Neurological/Psychological: denies: No symptoms reported, See HPI, Confusion, Dementia, Depression, Anxiety, Sensory change, Homicidal ideation, Weakness, Gait changes, Loss of power, Paralysis, Seizure, Lost consciousness, Headaches, Speech impairment, Numbness, Suicidal ideation, Tingling, Tremor, Other -: Yes All other systems reviewed and negative Physical Exam - Vital signs Vitals: Temp Pulse Resp BP Pulse Ox 98.2 F 76 18 158/63 H 98 03/25/19 12:20 03/25/19 12:20 03/25/19 12:20 03/25/19 12:20 03/25/19 12:20 Notes: PHYSICAL EXAMINATION: GENERAL: Well-appearing, well-nourished and in no acute distress. HEAD: Atraumatic, normocephalic. EYES: Pupils equal round and reactive to light, extraocular movements intact, sclera anicteric, conjunctiva are normal. ENT: nares patent, oropharynx clear without exudates. Moist mucous membranes. NECK: Normal range of motion, supple without lymphadenopathy LUNGS: Breath sounds clear to auscultation bilaterally and equal. No wheezes rales or rhonchi. HEART: Regular rate and rhythm without murmurs ABDOMEN: Soft, nontender, normoactive bowel sounds. No guarding, no rebound. No masses appreciated. EXTREMITIES: Normal range of motion, no pitting or edema. No cyanosis. NEUROLOGICAL: No focal neurological deficits. Moves all extremities spontaneously and on command. PSYCH: Normal mood, patient is calm nonagitated alert and oriented x3. She denies homicidal suicidal ideations or present auditory or visual hallucinations. SKIN: Warm, Dry, normal turgor, no rashes or lesions noted. Course - Vital Signs Vital signs: Temp Pulse Resp BP Pulse Ox 97.9 F 75 20 163/62 H 99 03/25/19 14:22 03/25/19 14:22 03/25/19 14:22 03/25/19 14:22 03/25/19 14:22 - Laboratory Result Diagrams: 03/25/19 14:10 03/25/19 14:10 Laboratory results interpreted by me: 03/25/19 03/25/19 03/25/19 13:45 14:10 14:10 WBC 3.2 L Hgb 11.3 L Hct 32.8 L RDW 14.9 H BUN 21 H Est GFR ( Amer) 57 L Est GFR (MDRD) Non-Af 47 L Urine Blood SMALL H Salicylates < 1.0 L Acetaminophen < 10 L - Transfer of Care Notes: 03/25/19 15:23 Note patient has remained stable. Did have psychiatric people see her the suggested stopping trazodone and giving her as this might actually have contributed to her behavior starting Depakote 250 p.o. twice daily and BuSpar 6 mg p.o. twice daily for anxiety and a and follow-up with her regular doctor as this may be early dementia and she may need Aricept or namedia. Discharge - Discharge Clinical Impression: Altered mental status Qualifiers: Altered mental status type: transient alteration of awareness Qualified Code(s): R40.4 - Transient alteration of awareness Condition: Good Disposition: HOME, SELF-CARE Instructions: Dementia ([facility]) Additional Instructions: Stop trazodone start Depakote and BuSpar as discussed follow-up with your regular doctor for possible starting on Namedia or Aricept for possible early dementia Prescriptions: Buspirone HCl [Buspar 10 mg Tablet] 10 mg PO BID #60 tablet Divalproex Sodium [Depakote] 250 mg PO BID #60 tablet. Referrals: VERITO ANTOINE, MANAGER PUBLIC [NURSE PRACTITIONER] - Follow up as needed
[2019-03-25 14:50] LABS: ALKALINE PHOSPHATASE 68 U/L (38-126); ANION GAP 8 (5-19); ASPARTATE AMINO TRANSFERASE 36 U/L (14-36); BILIRUBIN,DIRECT 0.2 mg/dL (0.0-0.4); BILIRUBIN,TOTAL 0.6 mg/dL (0.2-1.3); BLOOD UREA NITROGEN 21 mg/dL (7-20); CALCIUM 9.5 mg/dL (8.4-10.2); CARBON DIOXIDE 30 mmol/L (22-30); CHLORIDE 104 mmol/L (98-107); GLUCOSE 76 mg/dL (75-110); TOTAL PROTEIN 6.8 g/dL (6.3-8.2)
[2019-03-25 14:51] LABS: ACETAMINOPHEN < 10 ug/mL (10-30); ALCOHOL < 10 mg/dL (NONE DETECTED); SALICYLATE < 1.0 mg/dL (2.0-20.0)
[2019-03-25 14:59] LABS: APPEARANCE,URINE CLEAR; BILIRUBIN,URINE NEGATIVE (NEGATIVE); COLOR,URINE STRAW; GLUCOSE, URINE NEGATIVE (NEGATIVE); KETONES,URINE NEGATIVE (NEGATIVE); LEUKOCYTE ESTERASE,URINE NEGATIVE (NEGATIVE); NITRITE,URINE NEGATIVE (NEGATIVE); PROTEIN,URINE NEGATIVE (NEGATIVE); URINE SPECIFIC GRAVITY 1.006; UROBILINOGEN,URINE NEGATIVE mg/dL (<2.0)
[2019-03-25 15:24] LABS: URINE AMPHETAMINES SCREEN NEGATIVE; URINE BARBITURATES SCREEN NEGATIVE; URINE BENZODIAZEPINES SCREEN NEGATIVE; URINE COCAINE SCREEN NEGATIVE; URINE MARIJUANA (THC) SCREEN NEGATIVE; URINE METHADONE SCREEN NEGATIVE; URINE PHENCYCLIDINE SCREEN NEGATIVE
--- NOTE | 2019-03-25 18:37 | EKG REPORT ---
SEVERITY:- NORMAL ECG - SINUS RHYTHM : Confirmed by: Alejandro Montiel MD 25-Mar-2019 18:37:14
== END 2019-03-25 15:30 | disposition home or self-care (01) ==
LOC: ER 12:08
DX: R40.4 Transient alteration of awareness (principal); F29 Unspecified psychosis not due to a substance or known physiological condition; I10 Essential (primary) hypertension; J44.9 Chronic obstructive pulmonary disease, unspecified; Z90.49 Acquired absence of other specified parts of digestive tract; Z90.710 Acquired absence of both cervix and uterus
CPT/HCPCS: 36415; 80053; 80307; 81001; 85025; 87086; 93005; 93010; 99284

== ENCOUNTER 2019-05-29 09:55 | Emergency (ER) | payer MEDICARE, MEDICAID ==
--- NOTE | 2019-05-29 10:24 | ER Document Report ---
ED Medical Screen (RME) - General Chief Complaint: Fall Injury Stated Complaint: FALL/BACK PAIN, NOSE INJURY Time Seen by Provider: 05/29/19 10:17 Primary Care Provider: GARY AMEZQUITA DO [Primary Care Provider] - Follow up as needed Notes: HPI: 69-year-old female presenting for evaluation of multiple injuries sustained in a fall. Patient states she got out of bed at 430 today and fell striking the dresser next to the bed before falling to the floor. Patient states she had difficulty getting up and had to crawl around afterwards. She complains of pain to the upper and lower back. Left hip. Left knee. Son states that she did have a nosebleed from both nostrils. Son indicates patient is in early stages of dementia. I have greeted and performed a rapid initial assessment of this patient. A comprehensive ED assessment and evaluation of the patient, analysis of test results and completion of the medical decision making process will be conducted by additional ED providers PHYSICAL EXAMINATION: GENERAL: Well-appearing, well-nourished and in mild acute distress. HEAD: Atraumatic, normocephalic. EYES: sclera anicteric, conjunctiva are normal. ENT: Moist mucous membranes. No active epistaxis at this time, nontender to palpation NECK: Normal range of motion, nontender to palpation LUNGS: Normal work of breathing, clear to auscultation HEART: 2+ radial pulses bilaterally, regular rate and rhythm ABD: limited by positioning for exam in triage. EXTREMITIES: no pitting or edema. No cyanosis. Mild tenderness on compression of the pelvis over the left hip. Slight soft tissue swelling and bruising over the anterior left knee BACK: There is bruising to the lower thoracic back over the mid spine region with tenderness on palpation over the upper and lower thoracic spine and also over the lumbar spine NEUROLOGICAL: No focal neurological deficits. Moves all extremities spontaneously and on command. PSYCH: Normal mood, normal affect. SKIN: Warm, Dry, normal turgor, no rashes or lesions noted. TRAVEL OUTSIDE OF THE [place] IN LAST 30 DAYS: No - Related Data Allergies/Adverse Reactions: No Known Allergies Allergy (Verified 03/25/19 13:21) Past Medical History - Past Medical History Cardiac Medical History: Reports: Hx Hypertension Pulmonary Medical History: Reports: Hx Asthma, Hx COPD Renal/ Medical History: Reports: Hx Renal Insufficiency. Denies: Hx Peritoneal Dialysis GI Medical History: Reports: Hx Diverticulitis - dx last year, Hx Gastroesophageal Reflux Disease Infectious Medical History: Reports: Hx C-Diff - 2 weeks ago-tx with antibiotics Past Surgical History: Reports: Hx Cholecystectomy, Hx Hysterectomy Physical Exam - Vital signs Vitals: Temp Pulse Resp BP Pulse Ox 98.1 F 59 L 20 170/58 H 100 05/29/19 10:01 05/29/19 10:01 05/29/19 10:01 05/29/19 10:01 05/29/19 10:01 Course - Vital Signs Vital signs: Temp Pulse Resp BP Pulse Ox 98.1 F 59 L 20 170/58 H 100 05/29/19 10:01 05/29/19 10:01 05/29/19 10:01 05/29/19 10:01 05/29/19 10:01 Doctor's Discharge - Discharge Referrals: GARY AMEZQUITA DO [Primary Care Provider] - Follow up as needed
--- NOTE | 2019-05-29 10:57 | RADIOLOGY REPORT (SQ) ---
EXAM DESCRIPTION: CT HEAD WITHOUT COMPLETED DATE/TIME: 05/29/2019 10:48 am REASON FOR STUDY: fall COMPARISON: 06/07/2017 TECHNIQUE: Axial images acquired through the brain without intravenous contrast. Images reviewed wi th bone, brain and subdural windows. Additional sagittal and coronal reconstructions were generated. Images stored on PACS. All CT scanners at this facility use dose modulation, iterative reconstruction, and/or weight based d osing when appropriate to reduce radiation dose to as low as reasonably achievable (ALARA). [facility]: Dose Right [facility]: CareDose [facility]: Dose Right [facility]: Teradose 4D [facility]: BioSTL RADIATION DOSE: CT Rad equipment meets quality standard of care and radiation dose reduction techniq ues were employed. CTDIvol: 53.2 mGy. DLP: 991 mGy-cm. mGy. LIMITATIONS: None. FINDINGS: VENTRICLES: Normal size and contour. CEREBRUM: No masses. No hemorrhage. No midline shift. No evidence for acute infarction. Normal gra y/white matter differentiation. No areas of low density in the white matter. CEREBELLUM: No masses. No hemorrhage. No alteration of density. No evidence for acute infarction. EXTRAAXIAL SPACES: No fluid collections. No masses. ORBITS AND GLOBE: No intra- or extraconal masses. Normal contour of globe without masses. Bilateral cataract surgery. CALVARIUM: No fracture. PARANASAL SINUSES: No fluid or mucosal thickening. SOFT TISSUES: No mass or hematoma. OTHER: No other significant finding. IMPRESSION: NO ACUTE INTRACRANIAL IMAGING FINDINGS. EVIDENCE OF ACUTE STROKE: NO. COMMENT: Quality ID # [id number]: Final reports with documentation of one or more dose reduction techniques (e.g., Automated exposure control, adjustment of the mA and/or kV according to patient size, use of iterative reconstruction technique) TECHNICAL DOCUMENTATION: JOB ID: [id number] 2010 [employer]- All Rights Reserved Reading location - IP/workstation name: [email or web address]
--- NOTE | 2019-05-29 11:00 | RADIOLOGY REPORT (SQ) ---
EXAM DESCRIPTION: CT CERVICAL SPINE WITHOUT COMPLETED DATE/TIME: 05/29/2019 10:48 am REASON FOR STUDY: fall COMPARISON: None. TECHNIQUE: Axial images acquired through the cervical spine without intravenous contrast. Images re viewed with lung, soft tissue and bone windows. Reconstructed coronal and sagittal MPR images review ed. Images stored on PACS. All CT scanners at this facility use dose modulation, iterative reconstruction, and/or weight based d osing when appropriate to reduce radiation dose to as low as reasonably achievable (ALARA). [facility]: Dose Right [facility]: CareDose [facility]: Dose Right [facility]: Teradose 4D [facility]: [email or web address] RADIATION DOSE: CT Rad equipment meets quality standard of care and radiation dose reduction techniq ues were employed. CTDIvol: 20.0 mGy. DLP: 323 mGy-cm. mGy. LIMITATIONS: None. FINDINGS: ALIGNMENT: Anatomic. MINERALIZATION: Decreased. VERTEBRAL BODIES: No fractures or dislocation. DISCS: Multilevel disc height loss greatest at C4 to C7. Associated small osteophytes. Largest post erior projecting osteophyte disc complex at C6-7 resulting in otup-vg-nkkkrjsx canal stenosis. FACETS, LATERAL MASSES, POSTERIOR ELEMENTS: No facet fracture dislocation. Mild facet arthropathy. Uncovertebral hypertrophy with mjvj-fh-ctqjgtas neural foraminal narrowing greatest at C5-6 and C6-7. HARDWARE: None in the spine. VISUALIZED RIBS: No fractures. LUNG APICES AND SOFT TISSUES: No significant or acute findings. OTHER: No other significant finding. IMPRESSION: No evidence of acute bony abnormality of the cervical spine. Multilevel degenerative disc disease greatest at C4-C7. TECHNICAL DOCUMENTATION: JOB ID: [id number] Quality ID # [id number]: Final reports with documentation of one or more dose reduction techniques (e.g., Au tomated exposure control, adjustment of the mA and/or kV according to patient size, use of iterative reconstruction technique) 2010 [employer]- All Rights Reserved Reading location - IP/workstation name: [email or web address]
--- NOTE | 2019-05-29 11:25 | RADIOLOGY REPORT (SQ) ---
EXAM DESCRIPTION: HIP LEFT AP/LATERAL COMPLETED DATE/TIME: 05/29/2019 11:05 am REASON FOR STUDY: fall COMPARISON: None. NUMBER OF VIEWS: Two views, AP pelvis and frog lateral left hip. LIMITATIONS: None. FINDINGS: Osteopenic. Degenerative hip changes. No fracture or worrisome bone lesion. Radiopacity use over the pelvis probably are in the fecal stream, likely related to extensive diverticulosis. . OTHER: No other significant finding. IMPRESSION: No acute findings. TECHNICAL DOCUMENTATION: JOB ID: [id number] Reading location - IP/workstation name: [email or web address]
--- NOTE | 2019-05-29 11:27 | RADIOLOGY REPORT (SQ) ---
EXAM DESCRIPTION: L SPINE WHOLE COMPLETED DATE/TIME: 05/29/2019 11:05 am REASON FOR STUDY: fall COMPARISON: None. NUMBER OF VIEWS: Five views including obliques. TECHNIQUE: AP, lateral, oblique, and sacral radiographic images acquired of the lumbar spine. LIMITATIONS: None. FINDINGS: MINERALIZATION: Osteopenia. SEGMENTATION: Normal. No transitional anatomy. ALIGNMENT: Normal. VERTEBRAE: Maintained height. No fracture or worrisome bone lesion. DISCS: Multilevel disc space narrowing with osteophytes. POSTERIOR ELEMENTS: Pedicles and facets are intact. No pars defect or posterior arch defects. Facet arthropathy is present. HARDWARE: None in the spine. PARASPINAL SOFT TISSUES: Normal. PELVIS: Intact as visualized. No fractures or worrisome bone lesions. SI joints intact. OTHER: No other significant finding. IMPRESSION: SPONDYLOSIS WITHOUT BONE LESION OR FRACTURE. TECHNICAL DOCUMENTATION: JOB ID: [id number] 2010 [employer]- All Rights Reserved Reading location - IP/workstation name: [email or web address]
--- NOTE | 2019-05-29 11:29 | RADIOLOGY REPORT (SQ) ---
EXAM DESCRIPTION: T SPINE AP/LAT COMPLETED DATE/TIME: 05/29/2019 11:05 am REASON FOR STUDY: fall COMPARISON: None. NUMBER OF VIEWS: Two views. TECHNIQUE: AP and lateral radiographic images acquired of the thoracic spine. LIMITATIONS: None. FINDINGS: MINERALIZATION: Normal. ALIGNMENT: Kyphotic. No gross fracture. VERTEBRAE: No fracture or bone lesion. Maintained height, normal segmentation. DISCS: Multilevel degenerative narrowing. HARDWARE: None in the spine. MEDIASTINUM AND SOFT TISSUES: Normal heart size and aortic contour. No soft tissue abnormality. VISUALIZED LUNG DOOLEY: Clear. OTHER: No other significant finding. IMPRESSION: No acute findings. TECHNICAL DOCUMENTATION: JOB ID: [id number] 2010 [employer] [facility]- All Rights Reserved Reading location - IP/workstation name: [email or web address]
--- NOTE | 2019-05-29 11:30 | RADIOLOGY REPORT (SQ) ---
EXAM DESCRIPTION: KNEE LEFT 4 VIEW COMPLETED DATE/TIME: 05/29/2019 11:05 am REASON FOR STUDY: fall COMPARISON: None. NUMBER OF VIEWS: Four views left knee LIMITATIONS: None. FINDINGS: Osteopenic. Medial compartment degenerative narrowing. Moderate joint effusion. No frac ture. OTHER: No other significant finding. IMPRESSION: Joint effusion. Otherwise no acute findings. TECHNICAL DOCUMENTATION: JOB ID: [id number] Reading location - IP/workstation name: [email or web address]
--- NOTE | 2019-05-29 11:39 | ER Document Report ---
ED Fall - General Chief Complaint: Back Injury Stated Complaint: FALL/BACK PAIN, NOSE INJURY Time Seen by Provider: 05/29/19 10:17 Primary Care Provider: GARY AMEZQUITA DO [Primary Care Provider] - Follow up as needed Notes: 69-year-old woman with dementia, apparently has had a declining function. She has been having increased falls at home and apparently fell from the bed attempting to get to the bathroom this morning. She complains of back pain. There was no known head injury or loss of consciousness. She also complains of left knee pain. Family member with healthcare power of privacy attorney is concerned with getting a hospice consultation. TRAVEL OUTSIDE OF THE [place] IN LAST 30 DAYS: No - Related data Allergies/Adverse Reactions: No Known Allergies Allergy (Verified 03/25/19 13:21) Home Medications: Trazadone, Clonazepam, Haldol, Amlodipine, Primidone, Pantaprazole, Simvastatin, Diclofenac, Spiriva Past Medical History - Social History Smoking Status: Unknown if Ever Smoked Family History: Reviewed & Not Pertinent Patient has suicidal ideation: No Patient has homicidal ideation: No - Past Medical History Cardiac Medical History: Reports: Hx Hypertension Pulmonary Medical History: Reports: Hx Asthma, Hx COPD Renal/ Medical History: Reports: Hx Renal Insufficiency. Denies: Hx Peritoneal Dialysis GI Medical History: Reports: Hx Diverticulitis - dx last year, Hx Gastroesophageal Reflux Disease Infectious Medical History: Reports: Hx C-Diff - 2 weeks ago-tx with antibiotics Past Surgical History: Reports: Hx Cholecystectomy, Hx Hysterectomy Review of Systems - Review of Systems Notes: Patient has dementia, unable to give a reliable review of systems. -: Yes ROS unobtainable due to patient's medical condition Physical Exam - Vital signs Vitals: Temp Pulse Resp BP Pulse Ox 98.1 F 59 L 20 170/58 H 100 05/29/19 10:05/29/19 10:05/29/19 10:05/29/19 10:05/29/19 10:01 - Notes Notes: PHYSICAL EXAMINATION: Physical Exam: General: Frail 69-year-old woman confused in no acute distress HEENT: NC/AT, pupils equal round and reactive to light, MM moist,nares clear, oropharynx clear, airway patent Neck: supple, no adenopathy, no masses. Good range of motion Lungs: clear, no wheezing, no rales no rhonchi CVS: Regular rate and rhythm no murmur gallop or rub Abdomen: Soft, active, nontender, no masses, no hepatosplenomegaly Ext: No edema, clubbing or cyanosis. Back: Upper lumbar ecchymosis in the midline, no crepitus, no other deformity noted. Neuro: Alert and responsive, unable to give a reliable history Skin: Intact no open lesions, no rash PSYCH: Normal mood, normal affect. Course - Re-evaluation Re-evalutation: 05/29/19 14:11 X-rays were ordered, multiple to include CT head, cervical spine, plain films of the thoracic and lumbar spine, bilateral hip x-rays. No acute fractures or dislocations are noted on any of the studies. The patient is comfortable and resting quietly in the bed. We are consulting for hospice evaluation. This was per the request of the patient's healthcare power of privacy attorney. 05/29/19 17:18 Patient has been set up to have hospice come out on Saturday to the home to begin assessment in a treatment plan. Patient also had a barium swallow performed as recommended by speech and swallowing evaluation. The family was given information regarding feeding and consistency of the food to maintain good swallowing function. - Vital Signs Vital signs: Temp Pulse Resp BP Pulse Ox 97.8 F 60 18 161/52 H 97 05/29/19 15:50 05/29/19 15:50 05/29/19 15:50 05/29/19 15:50 05/29/19 15:50 - Diagnostic Test Radiology reviewed: Image reviewed, Reports reviewed - CT head: No acute findings. CT cervical spine: Multilevel degenerative disc disease C4-C7 Lumbar spine x-ray: Spondylosis with no bony lesions or fractures noted. X-ray left knee + joint effusion, no fracture, no dislocation X-ray hip, left: No fracture or dislocation noted. Modified barium swallow x-ray: No obstruction, no perforation. Discharge - Discharge Clinical Impression: Lumbar contusion Qualifiers: Encounter type: initial encounter Qualified Code(s): S30.0XXA - Contusion of lower back and pelvis, initial encounter Dementia Qualifiers: Dementia type: unspecified type Dementia behavioral disturbance: without behavioral disturbance Qualified Code(s): F03.90 - Unspecified dementia without behavioral disturbance Fall Qualifiers: Encounter type: initial encounter Qualified Code(s): W19.XXXA - Unspecified fall, initial encounter Condition: Good Disposition: HOME, SELF-CARE Instructions: Dementia ([facility]), Low Back Pain ([facility]) Additional Instructions: HOME CARE INSTRUCTIONS & INFORMATION: Thank you for choosing us for your medical needs. We hope you're satisfied with the care you received. After you leave, you must properly care for your problem and, at the same time, observe its progress. Any condition can change. Some illnesses can change rapidly over hours or days. If your condition worsens, return to the Emergency Department or see your physician promptly. ABOUT YOUR X-RAYS AND EKG'S: If you had an EKG or X-rays taken, they have been read by the Emergency Physician. The X-rays and EKG's will also be read by a Radiologist or Sleeping Car Conductor within 24 hours. If discrepancies are noted, you will be notified by telephone. Please be certain the ED has a correct telephone number & address where you can be reached. Also, realize that some fractures or abnormalities do not show up on initial X-rays. If your symptoms continue, see your physician. ABOUT YOUR LABORATORY TEST: If you had laboratory tests, the results have been reviewed by the Emergency Physician. Some test results (for example cultures) may not be available for several days. You will be contacted if any test result shows you need additional treatment. Please be certain the ED has a correct telephone number and address where you can be reached. ABOUT YOUR MEDICATIONS: You will receive instructions on how to take your medicine on the prescription label you receive. Additional information may be provided by the Pharmacy. If you have questions afterwards, call the ED for clarification or further instructions. Some prescribed medications may cause drowsiness. Do not perform tasks such as driving a car or operating machinery without consulting your Pharmacist. If you feel you need a refill of pain medication, your condition will need re-evaluation. Please do not call for a refill of any medication. ABOUT YOUR SIGNATURE: Signature of this document acknowledges to followin. Understanding that you received emergency treatment and that you may be released before al medical problems are known or treated. Please be certain the ED has a correct phone number & address where you can be reached. 2. Acknowledgement that you will arrange for follow-up care as recommended. 3. Authorization for the Emergency Physician to provide information to your follow-up Physician in order to maximize your care. AT ANY TIME, IF YOUR SYMPTOMS CHANGE SIGNIFICANTLY OR WORSEN OR YOU DEVELOP NEW SYMPTOMS, RETURN TO THE EMERGENCY DEPARTMENT IMMEDIATELY FOR RE-EVALUATION. OUR GOAL IS TO PROVIDE EXCELLENT MEDICAL CARE! WE HOPE THAT WE HAVE MET YOUR EXPECTATIONS DURING YOUR EMERGENCY DEPARTMENT VISIT AND THAT YOU FEEL YOU HAVE RECEIVED EXCELLENT CARE! Referrals: GARY AMEZQUITA, DO [Primary Care Provider] - Follow up as needed
[2019-05-29 15:51] VITALS: BP 161/52
--- NOTE | 2019-05-29 16:24 | RADIOLOGY REPORT (SQ) ---
EXAM DESCRIPTION: COOKIE SWALLOW COMPLETED DATE/TIME: 05/29/2019 4:10 pm REASON FOR STUDY: choking dementia, failed bedside speech pathology swallowing consultation Gagging and regurgitation of ingested food COMPARISON: None. TECHNIQUE: Videofluoroscopic swallowing examination was performed in conjunction with speech patholo gy. Videofluoroscopic imaging was obtained and reviewed and these are the findings: RADIATION DOSE: 1 minutes 29 seconds of fluoroscopy was used. 2 images saved to PACS. LIMITATIONS: None FINDINGS: The patient was brought into the fluoro room and placed upright on a modified barium swall ow chair. The patient was then given multiple consistencies mixed with barium to swallow under live fluoroscopic video guidance. According to the Speech Pathologist there was no penetration or aspirat ion. Fluoroscopy over the distal esophagus shows contrast entering the stomach without delay. IMPRESSION: NO EVIDENCE OF PENETRATION OR ASPIRATION. PLEASE SEE SPEECH PATHOLOGIST REPORT FOR OTHER FINDINGS AND RECOMMENDATIONS. COMMENT: Quality ID [id number]: Final reports for procedures using fluoroscopy that document radiation exp osure indices, or exposure time and number of fluorographic images (if radiation exposure indices are not available) TECHNICAL DOCUMENTATION: JOB ID: [id number] 2010 [employer]- All Rights Reserved Reading location - IP/workstation name: [email or web address]
--- NOTE | 2019-05-29 16:36 | ST Modified Barium Swallow ---
Recommendation - Recommendations Recommendations: DIET RECOMMENDATIONS: Mechanical soft with chopped meats; no seeds, nuts, skins, or crumbly textures. Thin liquids (no liquid restrictions). Use strategies - slow rate of intake and alternating bites & sips. If patient continues to have coughing & choking despite strategies, recommend puree diet. ASPIRATION PRECAUTIONS (sit at 90 degrees, slow rate of intake, stop eating if coughing or choking). SUPERVISION while eating - cue patient to eat slowly and alternate bites and sips. SPEECH THERAPY patient may benefit from home health speech therapy for dysphagia to teach & educate on use of strategies. Patient may benefit from course of traditional dysphagia therapy (as she is able to follow directions) to improve swallowing abilities and help maintain ability to safely eat by mouth as long as possible. Medical Diagnoses - Medical Diagnoses Medical Diagnosis Description & ICD-10 Code(s): Admitted due to fall resulting in contusion. Other Medical Diagnoses/Co-Morbidities: frontal lobe dementia. - ICD-10 Tx Diagnosis Coding (1) Dementia ICD-10 Code(s): F03.90 - UNSPECIFIED DEMENTIA WITHOUT BEHAVIORAL DISTURBANCE (2) Fall ICD-10 Code(s): W19.XXXA - UNSPECIFIED FALL, INITIAL ENCOUNTER ST Modified Barium Swallow - General Date: 05/29/19 Referring Physician: Dr. Preciado Risks/Precautions: Falls, Aspiration Date of Onset: 05/15/19 - 2-3 weeks ago Reason for Referral: choking - History History obtained from: Patient, Spouse, Family - sister, Other - EMR -: Medical - Patient has early onset frontal lobe dementia. She has been recieving home health for speech therapy but focused on communication. Patient currently admitted to emergency department. Medications: Acetaminophen, Buspirone, Ceftriaxone, Diphenhydramine, Divalproex, Ketoralac, Olanzapine, Ondasetron, Quetiapine Fumarate, Sodium Chloride, Trazodone. Allergies: no known allergies. - Functional Status Prior Functional Status: INDEPENDENT: feeding Current Functional Limitations: feeding - Subjective Patient/caregiver goal(s): other - determine cause of choking/gagging, ensure no aspiration Cognitive-Linguistic Function: Mildly Impaired Speech Intelligibility: WNL Current Nutritional Means: PO Current PO diet: Mechanical - cut Current symptoms: Poor intake, Coughing, gagging Pain: Patient reports, 5/5 - back pain - Objective Assessment: Upright, Left Lateral - Food Trials Used Food trials used: Thin liquids, Pureed, Soft solids The patient: Was Able to Self Feed - Oral-Motor Skills Dentition: Edentulous - has dentures but not wearing Oral Motor Skills: slow, effortful mastication of barron cracker with barium paste. Reduced tongue movement and difficulty transferring bolus to initiate swallow. - Assessment Oral prep: Mildly Impaired Labial closure: Adequate Leakage: None Mastication: Lengthy Lingual Movement: Discoordinated Oral stage: Mildly Impaired - Pharyngeal Stage Initiation of Pharyngeal Stage Reflex: Normal Decreased laryngeal elevation: Yes Reduced Velopharyngeal Closure: no Reduced pressure generation: Yes reduced tongue-based retraction: Yes Reduced Thyro-Hyoid approximation: Yes Reduced epiglottic excursion: Yes Reduced pharyngeal peristalsis/contraction: Yes Multiple Swallows with: Ineffective Clearance Post-swallow residulas vallecular: Moderate Post-Swallow residuals in pyriforms: None Post-Swallow Residuals: Posterior pharyngeal wall Reduced Cricopharyngeal opening: No - Esophageal Stage Cricopharyngeal Function: Normal Upper Esophageal Transit: Normal Esophageal stasis/dysmotility: No Cervical Osteophytes noted: No - Fall Risk Assessment Medications/Conditions that increase fall risks include: Antidepressants, sedatives, anti-arrhythmic, diuretic, benzodiazipenes, neuroleptics. BP regulation problems, cardiac problems, balance or gait deficits, neurological problems. Is patient considered at risk for falls: yes Fall Risk Actions Taken: No action needed - patient admitted due to fall and referral has been made to Palliative Care to provide additional support in home - Behavioral Observations During evaluation process patient: was pleasant, was cooperative, able to answer questions - Treatment / Educational Needs: Treatment/Education Needs: Treatment consisted of patient education on the role of the Speech Pathologist. Patient's plan of care and golas were communicated as well as scheduling and attendance policies. Recommendations for initial home program were shared. Patient demonstrated understanding and verbalized agreement. - Impression/Summary Tracheal Aspiration: no Patient presents with: Oral stage dysphagia, Pharyngeal stage dysph., Oral- Pharyngeal dysph., Mild-Moderate Risk of Aspiration: Moderate Risk of nutritional compromise: Moderate Risk due to: weakness in pharyngeal musculature, residuals, mental status Evaluation and Findings: Patient presents with moderate oral, oropharyngeal, and pharyngeal stage dysphagia characterized by reduced pressure generation, reduced pharyngeal squeeze, with moderate post-swalow residuals in valleculae that only partially clear with repeat swallow and liquid wash. - Recommendations Solid diet recommendations: Mechanical Soft, Chopped Meat Liquid Diet Modification: Thin Strict aspiration precautions: Yes Pt/Family education and followup with MD: Yes Dysphagia therapy with MANAGER UROLOGY: yes - consider home health speech therapy for dysphagia - continued education and ongoing assessment of aspiration risk would be beneficial to patient in maintaining safe swallow and determine if puree is necessary or if patient able to use strategies to allow continued intake of solids. Recommended techniques: Med Crushed in Applesauce, Small Bites and Sips, Alternate Bites/Sips Supervision: Constant Information, Precautions and Recommendations: Patient (Written), Patient (Verbal), Family Member (Written), Family Member (Verbal) - Time Total Time: 15 - Plan of Care Summary: ST provided written and verbal education both to patient and her as well as to patient's sister (& POA) via phone. ST provided extensive education on use of dysphagia strategies to attempt to maintain intake of solid foods as well as education on transitioning to puree if patient continues coughing & choking despite use of slow rate, alternating bites & sips, and small bites. All verbalized understanding. ST also followed up with referring physician and provided results of MBSS and diet recommendations. Physician reported patient would be discharged from ED to home this date. POC Procedures/Codes: pt/family education, behavioral/dietary mod, MBSS ([id number]) Strategies to optimize patient understanding include:: ongoing assessment of educational needs, implementation of educational strategies, and re-education. - - -: Thank you for the opportunity to work with this patient and his/her family. Should you have any questions about this patient's plan or progress, I can be reached at [phone].
== END 2019-05-29 17:34 | disposition home or self-care (01) ==
LOC: ER 09:55
DX: S30.0XXA Contusion of lower back and pelvis, initial encounter (principal); F03.90 Unspecified dementia, unspecified severity, without behavioral disturbance, psychotic disturbance, mood disturbance, and anxiety; S09.92XA Unspecified injury of nose, initial encounter; M54.9 Dorsalgia, unspecified; W19.XXXA Unspecified fall, initial encounter; Y92.009 Unspecified place in unspecified non-institutional (private) residence as the place of occurrence of the external cause; Z91.81 History of falling; Z79.899 Other long term (current) drug therapy; I10 Essential (primary) hypertension; J44.9 Chronic obstructive pulmonary disease, unspecified
CPT/HCPCS: 70450; 72070; 72110; 72125; 74230; 99284

== ENCOUNTER 2019-09-28 19:16 | Emergency (ER) | payer MEDICARE, MEDICAID ==
[2019-09-28 19:40] VITALS: BP 112/60
== END 2019-09-28 20:44 | disposition left against medical advice (07) ==
LOC: ER 19:16
DX: Z53.21 Procedure and treatment not carried out due to patient leaving prior to being seen by health care provider (principal)